=== PATIENT | male | born 1930 | race Caucasian/White ===

== ENCOUNTER → 2016-04-29 | Outpatient (CLI) | payer MEDICARE, OTHER ==
[2016-04-29 11:45] LABS: Blood Urea Nitrogen 29 mg/dL (9-20); Non-African American GFR(MDRD) >60 (>60 ml/min/1.73 sqM)
--- NOTE | 2016-04-29 15:14 | CT ---
EXAMINATION TYPE: CT ChestAbdPelvis w con DATE OF EXAM: 04/29/2016 1:07 PM INDICATION: No complaints at time of scan, malignant carcinoid tumor of other sites. COMPARISON: 04/02/2010 CT DLP: 1374.3 mGycm CONTRAST: Performed with Oral Contrast and with IV Contrast, patient injected with 100 mL of Omnipaque 300. TECHNIQUE: Axial images at 5 mm thick sections. Reconstructed images in the coronal plane. Delayed images through the kidneys. FINDINGS: CT CHEST: Portion of the thyroid visualized is normal. Vascular calcification is within the aorta. No suspicious lung nodules or focal infiltrates are present. There is a 1.0 cm lymph node in the pretracheal space. Some smaller lymphadenopathy is present. The ascending aorta diameter at the level of the main pulmonary artery is 3.3 cm. The main pulmonary artery diameter at the bifurcation is 2.[address] ABDOMEN: Liver: Normal Spleen: Normal Pancreas: Normal Adrenal glands: The adrenal glands are normal. Gallbladder: Surgically absent Kidneys: No masses are evident. No hydronephrosis is present. No cysts are present. Delayed images were obtained through the kidneys, which remain unremarkable. Aorta: Vascular calcification is within the aorta. Inferior vena cava: Normal. CT PELVIS: Mesentery appears unremarkable. Loops of bowel within the abdomen and pelvis are normal. There are loops of bowel which are incom pletely distended or lack oral contrast limiting their evaluation. Appendix: Not visualized Urinary bladder: Normal. Genitourinary structures: Prostate is slightly prominent. Osseous structures: No suspicious lytic or sclerotic lesions. Scoliosis is present. IMPRESSIONS: 1. 1.0 cm lymph node within the pretracheal space. 2. No suspicious metastatic lesions radiographically apparent.
== END | disposition home or self-care (01) ==
LOC: RADCTMAIN 11:08
PROVIDERS: ATTEND Family Medicine
DX: C7A.098 Malignant carcinoid tumors of other sites (principal)
CPT/HCPCS: 82565; 84520; 71260; 74177; 36415; Q9967

== ENCOUNTER → 2016-09-11 | Outpatient (CLI) | payer MEDICARE, OTHER ==
[2016-09-11 17:03] LABS: CH 33.1; CHCM 33.4; HCT 37.1 % (39.0-53.0); HDW 2.65; HGB 12.6 gm/dL (13.0-17.5); MCH 33.7 pg (25.0-35.0); MCHC 33.9 g/dL (31.0-37.0); MCV 99.5 fL (80.0-100.0); Macrocytosis Slight; Mean Platelet Volume 8.2; RBC 3.73 m/uL (4.30-5.90); RDW 15.3 % (11.5-15.5); WBC 11.5 k/uL (3.8-10.6)
[2016-09-11 17:10] LABS: INR 1.1 (<1.2); Prothrombin Time 10.8 sec (9.0-12.0)
[2016-09-11 17:11] LABS: ALT 32 U/L (21-72); AST 22 U/L (17-59); Alkaline Phosphatase 59 U/L (38-126); Anion Gap 11 mmol/L; Blood Urea Nitrogen 27 mg/dL (9-20); Calcium 9.5 mg/dL (8.4-10.2); Carbon Dioxide 27 mmol/L (22-30); Chloride 103 mmol/L (98-107); Glucose 99 mg/dL (74-99); Non-African American GFR(MDRD) 58 (>60 ml/min/1.73 sqM); Potassium 4.8 mmol/L (3.5-5.1); Sodium 141 mmol/L (137-145); Total Bilirubin 0.4 mg/dL (0.2-1.3); Total Protein 6.8 g/dL (6.3-8.2)
== END ==
LOC: LABWHC1 16:40
PROVIDERS: ATTEND Internal Medicine Gastroenterology
DX: K74.60 Unspecified cirrhosis of liver (principal)
CPT/HCPCS: 36415; 80053; 82105; 85027; 85610

== ENCOUNTER → 2017-03-24 | Outpatient (CLI) | payer MEDICARE, OTHER ==
[2017-03-24 13:01] LABS: HCT 39.3 % (39.0-53.0); HGB 13.4 gm/dL (13.0-17.5); MCH 34.5 pg (25.0-35.0); MCV 101.4 fL (80.0-100.0); Macrocytosis Slight; Mean Platelet Volume 7.5; Platelet Count 208 k/uL (150-450); RBC 3.88 m/uL (4.30-5.90); RDW 13.6 % (11.5-15.5); WBC 12.9 k/uL (3.8-10.6)
[2017-03-24 13:07] LABS: ALT 18 U/L (21-72); AST 19 U/L (17-59); Albumin 4.2 g/dL (3.5-5.0); Alkaline Phosphatase 55 U/L (38-126); Anion Gap 12 mmol/L; Blood Urea Nitrogen 25 mg/dL (9-20); Calcium 9.5 mg/dL (8.4-10.2); Carbon Dioxide 28 mmol/L (22-30); Chloride 102 mmol/L (98-107); Glucose 129 mg/dL (74-99); Potassium 3.9 mmol/L (3.5-5.1); Sodium 142 mmol/L (137-145); Total Bilirubin 0.4 mg/dL (0.2-1.3); Total Protein 6.8 g/dL (6.3-8.2)
[2017-03-24 13:11] LABS: INR 1.1 (<1.2); Prothrombin Time 10.3 sec (9.0-12.0)
== END | disposition home or self-care (01) ==
LOC: LABWHC1 12:26
PROVIDERS: ATTEND Internal Medicine Gastroenterology
DX: K74.60 Unspecified cirrhosis of liver (principal)
CPT/HCPCS: 36415; 80053; 82105; 85027; 85610

== ENCOUNTER → 2017-04-13 | Outpatient (CLI) | payer MEDICARE, OTHER ==
--- NOTE | 2017-04-13 08:32 | US ---
EXAMINATION TYPE: US liver DATE OF EXAM: 04/13/2017 COMPARISON: 04/29/2016 CLINICAL HISTORY: K74.60 cirrhosis of liver; taking Lipitor; gallbladder removed EXAM MEASUREMENTS: Liver Length: 12.9 cm Gallbladder Wall: surgically removed CBD: 0.2 cm Right Kidney: 9.6 x 5.6 x 6.4 cm Pancreas: hyperechoic and unremarkable Liver: Coarsened and heterogeneous. This finding limits evaluation for underlying hepatic masses alt francisco j no discrete masses are identified on today's examination; Hepatic Vein flow to IVC; Portal Vein Flow and Hepatic artery flow to liver Gallbladder: surgically absent Evidence for sonographic [place]obato's sign: No CBD: wnl Right Kidney: No hydronephrosis or masses seen IMPRESSION: 1. Coarsened and heterogenous hepatic echotexture with a cirrhotic morphology of the liver. No focal lesions are identified in today's examination. 2. Surgical absence of the gallbladder
== END | disposition home or self-care (01) ==
LOC: RADUSWWP 06:57
PROVIDERS: ATTEND Internal Medicine Gastroenterology
DX: K74.60 Unspecified cirrhosis of liver (principal); R93.2 Abnormal findings on diagnostic imaging of liver and biliary tract; Z90.49 Acquired absence of other specified parts of digestive tract
CPT/HCPCS: 76705

== ENCOUNTER → 2017-09-15 | Outpatient (CLI) | payer MEDICARE, OTHER ==
[2017-09-15 16:56] LABS: HCT 35.6 % (39.0-53.0); HGB 11.7 gm/dL (13.0-17.5); MCH 31.8 pg (25.0-35.0); MCHC 32.8 g/dL (31.0-37.0); MCV 97.2 fL (80.0-100.0); Mean Platelet Volume 7.1; Platelet Count 190 k/uL (150-450); RBC 3.67 m/uL (4.30-5.90); RDW 13.9 % (11.5-15.5); WBC 9.7 k/uL (3.8-10.6)
[2017-09-15 17:08] LABS: Albumin 3.9 g/dL (3.5-5.0); Calcium 8.7 mg/dL (8.4-10.2); Potassium 4.2 mmol/L (3.5-5.1); Total Bilirubin 0.5 mg/dL (0.2-1.3); Total Protein 6.1 g/dL (6.3-8.2)
[2017-09-15 17:13] LABS: INR 1.1 (<1.2); Prothrombin Time 10.8 sec (9.0-12.0)
== END | disposition home or self-care (01) ==
LOC: LABWHC1 15:31
PROVIDERS: ATTEND Internal Medicine Gastroenterology
DX: K74.60 Unspecified cirrhosis of liver (principal)
CPT/HCPCS: 36415; 80053; 82105; 85027; 85610

== ENCOUNTER → 2017-10-13 | Outpatient (CLI) | payer MEDICARE, OTHER | END | disposition home or self-care (01) | LOC: LABWHC1 11:54 | PROVIDERS: ATTEND Nurse Practitioner Adult Health | DX: E78.2 Mixed hyperlipidemia (principal) | CPT/HCPCS: 36415; 83704 ==

== ENCOUNTER → 2018-02-26 | Outpatient (CLI) | payer MEDICARE, OTHER ==
[2018-02-26 09:27] LABS: HCT 35.2 % (39.0-53.0); HGB 11.1 gm/dL (13.0-17.5); MCHC 31.6 g/dL (31.0-37.0); MCV 101.3 fL (80.0-100.0); Macrocytosis Slight; Mean Platelet Volume 7.1; Platelet Count 193 k/uL (150-450); RBC 3.48 m/uL (4.30-5.90); RDW 14.4 % (11.5-15.5); WBC 8.8 k/uL (3.8-10.6)
[2018-02-26 17:44] LABS: Albumin/Globulin Ratio 2.67 (1.20-2.10); Anion Gap 7.9 mmol/L (4.00-12.00); Calcium 9.2 mg/dL (8.7-10.3); Carbon Dioxide 29.1 mmol/L (21.6-31.8); Globulin 1.5 g/dL (1.6-3.3); Potassium 4.2 mmol/L (3.5-5.5); Total Bilirubin 0.3 mg/dL (0.3-1.2); Total Protein 5.5 g/dL (6.2-8.2)
[2018-02-26 17:50] LABS: T4, Free (Free Thyroxine) 1.2 ng/dL (0.80-1.80)
== END | disposition home or self-care (01) ==
LOC: LABWHC1 08:18
PROVIDERS: ATTEND Internal Medicine Cardiovascular Disease
DX: Z00.00 Encounter for general adult medical examination without abnormal findings (principal)
CPT/HCPCS: 36415; 80053; 84439; 84443; 85027

== ENCOUNTER → 2018-03-16 | Outpatient (CLI) | payer MEDICARE, OTHER ==
[2018-03-16 10:10] LABS: HCT 34.7 % (39.0-53.0); HGB 11.5 gm/dL (13.0-17.5); MCH 33.7 pg (25.0-35.0); MCHC 33.3 g/dL (31.0-37.0); MCV 101.3 fL (80.0-100.0); Macrocytosis Slight; Platelet Count 212 k/uL (150-450); RBC 3.42 m/uL (4.30-5.90); RDW 14.1 % (11.5-15.5); WBC 10.6 k/uL (3.8-10.6)
[2018-03-16 10:18] LABS: Prothrombin Time 10.2 sec (9.0-12.0)
[2018-03-16 16:33] LABS: Albumin 3.9 g/dL (3.80-4.90); Albumin/Globulin Ratio 2.17 (1.20-2.10); Anion Gap 9.4 mmol/L (4.00-12.00); Calcium 9.3 mg/dL (8.7-10.3); Carbon Dioxide 25.6 mmol/L (21.6-31.8); Globulin 1.8 g/dL (1.6-3.3); Potassium 4.6 mmol/L (3.5-5.5); Total Bilirubin 0.3 mg/dL (0.2-1.2); Total Protein 5.7 g/dL (6.2-8.2)
== END ==
LOC: LABWHC1 09:37
PROVIDERS: ATTEND Internal Medicine Gastroenterology
DX: K74.60 Unspecified cirrhosis of liver (principal)
CPT/HCPCS: 36415; 80053; 82105; 85027; 85610

== ENCOUNTER → 2018-09-07 | Outpatient (CLI) | payer MEDICARE, OTHER ==
[2018-09-07 09:38] LABS: HCT 36.6 % (39.0-53.0); HGB 11.7 gm/dL (13.0-17.5); MCH 32.8 pg (25.0-35.0); MCHC 32.1 g/dL (31.0-37.0); MCV 102.1 fL (80.0-100.0); Macrocytosis Slight; Mean Platelet Volume 7.4; Platelet Count 188 k/uL (150-450); RBC 3.58 m/uL (4.30-5.90); RDW 14.4 % (11.5-15.5); WBC 10.4 k/uL (3.8-10.6)
[2018-09-07 09:47] LABS: Albumin 4.1 g/dL (3.5-5.0); Calcium 9.4 mg/dL (8.4-10.2); Total Bilirubin 0.6 mg/dL (0.2-1.3); Total Protein 6.5 g/dL (6.3-8.2)
--- NOTE | 2018-09-07 12:34 | US ---
EXAMINATION TYPE: US liver DATE OF EXAM: 09/07/2018 COMPARISON: 04/13/2017 CLINICAL HISTORY: 87-year-old male K74.60 cirrhosis of liver. Recheck of liver. No pain. GB removed . TECHNIQUE: Multiple sonographic images of the right upper quadrant are obtained. FINDINGS: EXAM MEASUREMENTS: Liver Length: 14.5 cm CBD: 0.4 cm Right Kidney: 10.3 x 5.3 x 5.6 cm Pancreas: Normal, echogenic in appearance. Liver: Appears coarse, lobular and heterogenous. No focal lesions identified. Gallbladder: Surgically absent Evidence for sonographic Lobato's sign: neg CBD: wnl Right Kidney: No hydronephrosis. IMPRESSION: 1. Coarsened appearance to the liver parenchyma with some nodular contour suggesting underlying cirrh osis. No sonographic evidence for hepatoma. 2. Status post cholecystectomy. No biliary ductal dilatation.
== END | disposition home or self-care (01) ==
LOC: RADUSWWP 08:10
PROVIDERS: ATTEND Internal Medicine Gastroenterology
DX: K74.60 Unspecified cirrhosis of liver (principal); Z90.49 Acquired absence of other specified parts of digestive tract
CPT/HCPCS: 76705; 80053; 82105; 85027; 85610

== ENCOUNTER → 2018-11-15 | Outpatient (CLI) | payer MEDICARE, OTHER ==
[2018-11-15 15:41] LABS: African American GFR (CKD) 62.6 (60.0-200.0); Albumin 4.1 g/dL (3.80-4.90); Albumin/Globulin Ratio 2.41 (1.60-3.17); Anion Gap 12.8 mmol/L (4.00-12.00); BUN/Creat Ratio 19.17 Ratio (12.00-20.00); Calcium 9.2 mg/dL (8.7-10.3); Carbon Dioxide 26.2 mmol/L (21.6-31.8); Chol/HDL Ratio 2.85; Globulin 1.7 g/dL (1.6-3.3); Total Bilirubin 0.3 mg/dL (0.2-1.2); Total Protein 5.8 g/dL (6.2-8.2)
[2018-11-15 17:10] LABS: Hemoglobin A1C 5.9 % (4.0-6.0)
== END | disposition home or self-care (01) ==
LOC: LABWHC1 07:58
PROVIDERS: ATTEND Family Medicine
DX: I25.10 Atherosclerotic heart disease of native coronary artery without angina pectoris (principal); R73.9 Hyperglycemia, unspecified
CPT/HCPCS: 36415; 80053; 80061; 83036; 84443

== ENCOUNTER → 2019-02-14 | Outpatient (CLI) | payer MEDICARE, OTHER ==
[2019-02-15 00:27] LABS: African American GFR (CKD) 44.2 (60.0-200.0); Anion Gap 12.2 mmol/L (4.00-12.00); BUN/Creat Ratio 17.5 Ratio (12.00-20.00); Calcium 9.6 mg/dL (8.7-10.3); Carbon Dioxide 27.8 mmol/L (21.6-31.8); Non-African American GFR(CKD) 38.2 (60.0-200.0); Potassium 4.3 mmol/L (3.5-5.5)
== END | disposition home or self-care (01) ==
LOC: LABWHC1 16:03
PROVIDERS: ATTEND Nurse Practitioner Adult Health
DX: R60.0 Localized edema (principal)
CPT/HCPCS: 36415; 80048; 83880

== ENCOUNTER → 2019-08-01 | Outpatient (CLI) | payer MEDICARE, OTHER ==
[2019-08-01 11:42] LABS: HCT 37.2 % (39.0-53.0); HGB 11.7 gm/dL (13.0-17.5); MCH 32.1 pg (25.0-35.0); MCHC 31.5 g/dL (31.0-37.0); MCV 101.9 fL (80.0-100.0); Macrocytosis Slight; Mean Platelet Volume 8.2; Platelet Count 197 k/uL (150-450); RBC 3.65 m/uL (4.30-5.90); RDW 14.3 % (11.5-15.5); WBC 12.5 k/uL (3.8-10.6)
[2019-08-01 11:59] LABS: Prothrombin Time 10.4 sec (9.0-12.0)
[2019-08-01 16:55] LABS: African American GFR (CKD) 69.6 (60.0-200.0); Albumin 4.3 g/dL (3.80-4.90); Albumin/Globulin Ratio 2.05 (1.60-3.17); Anion Gap 10.7 mmol/L (4.00-12.00); BUN/Creat Ratio 20.91 Ratio (12.00-20.00); Calcium 9.3 mg/dL (8.7-10.3); Carbon Dioxide 26.3 mmol/L (21.6-31.8); Globulin 2.1 g/dL (1.6-3.3); Potassium 4.2 mmol/L (3.5-5.5); Total Bilirubin 0.5 mg/dL (0.2-1.2); Total Protein 6.4 g/dL (6.2-8.2)
== END | disposition home or self-care (01) ==
LOC: LABWHC1 10:26
PROVIDERS: ATTEND Internal Medicine Gastroenterology
DX: K74.60 Unspecified cirrhosis of liver (principal)
CPT/HCPCS: 36415; 80053; 82105; 85027; 85610

== ENCOUNTER → 2019-09-05 | Outpatient (CLI) | payer MEDICARE, OTHER ==
[2019-09-05 16:28] LABS: African American GFR (CKD) 62.6 (60.0-200.0); Albumin 4.1 g/dL (3.80-4.90); Albumin/Globulin Ratio 2.05 (1.60-3.17); Anion Gap 7.2 mmol/L (4.00-12.00); BUN/Creat Ratio 23.33 Ratio (12.00-20.00); Calcium 9.4 mg/dL (8.7-10.3); Carbon Dioxide 26.8 mmol/L (21.6-31.8); Chol/HDL Ratio 2.96; LDL Cholesterol,Calculated 69.2 mg/dL (0.0-131.0); Potassium 4.2 mmol/L (3.5-5.5); Total Bilirubin 0.4 mg/dL (0.3-1.2); Total Protein 6.1 g/dL (6.2-8.2); VLDL Calculation 20.8 mg/dL (5.00-40.00)
== END | disposition home or self-care (01) ==
LOC: LABWHC1 09:00
PROVIDERS: ATTEND Internal Medicine Interventional Cardiology
DX: E78.2 Mixed hyperlipidemia (principal)
CPT/HCPCS: 36415; 80053; 80061

== ENCOUNTER → 2019-09-19 | Outpatient (CLI) | payer MEDICARE, OTHER ==
--- NOTE | 2019-09-19 10:07 | US ---
EXAMINATION TYPE: US liver DATE OF EXAM: 09/19/2019 COMPARISON: Ultrasound [address] 2017 CLINICAL HISTORY: K74.60 Cirrhosis. EXAM MEASUREMENTS: Liver Length: 11.7 cm Gallbladder Wall: Surgically absent CBD: 0.3 cm Right Kidney: 10.3 x 6.2 x 4.8 cm Pancreas: visualized portions wnl Liver: somewhat lobular contour. Gallbladder: Surgically absent CBD: wnl Right Kidney: No hydronephrosis or masses seen Visualized pancreas is unremarkable. Visualized liver shows slight heterogeneity without new mass or ductal dilatation. Lobulated contour on 2017 CT is well seen on ultrasound. No new ascites. IMPRESSION: No new intrahepatic mass or intrahepatic ductal dilatation. No new ascites noted.
== END | disposition home or self-care (01) ==
LOC: RADUSWWP 09:31
PROVIDERS: ATTEND Internal Medicine Gastroenterology
DX: K74.60 Unspecified cirrhosis of liver (principal)
CPT/HCPCS: 76705

== ENCOUNTER → 2020-01-20 | Outpatient (CLI) | payer MEDICARE, OTHER ==
[2020-01-20 09:24] LABS: HCT 37.3 % (39.0-53.0); HGB 12.1 gm/dL (13.0-17.5); MCH 33.2 pg (25.0-35.0); MCHC 32.5 g/dL (31.0-37.0); MCV 102.1 fL (80.0-100.0); Macrocytosis Slight; Mean Platelet Volume 8.5; Platelet Count 227 k/uL (150-450); RBC 3.66 m/uL (4.30-5.90); RDW 14.3 % (11.5-15.5); WBC 11.4 k/uL (3.8-10.6)
[2020-01-20 14:31] LABS: INR 1.03 (0.90-1.11); Prothrombin Time 11.1 sec (9.9-11.9)
[2020-01-20 16:33] LABS: African American GFR (CKD) 56.5 (60.0-200.0); Albumin 4.3 g/dL (3.80-4.90); Albumin/Globulin Ratio 2.15 (1.60-3.17); Anion Gap 9.8 mmol/L (4.00-12.00); BUN/Creat Ratio 21.54 Ratio (12.00-20.00); Calcium 9.5 mg/dL (8.7-10.3); Carbon Dioxide 28.2 mmol/L (21.6-31.8); Chol/HDL Ratio 2.61; LDL Cholesterol,Calculated 68.8 mg/dL (0.0-131.0); Non-African American GFR(CKD) 48.7 (60.0-200.0); Potassium 3.9 mmol/L (3.5-5.5); Total Bilirubin 0.4 mg/dL (0.2-1.2); Total Protein 6.3 g/dL (6.2-8.2); VLDL Calculation 18.2 mg/dL (5.00-40.00)
== END | disposition home or self-care (01) ==
LOC: LABWHC1 08:49
PROVIDERS: ATTEND Nurse Practitioner
DX: E78.2 Mixed hyperlipidemia (principal); K74.60 Unspecified cirrhosis of liver
CPT/HCPCS: 36415; 80053; 80061; 82105; 83880; 85027; 85610

== ENCOUNTER → 2020-03-01 | Outpatient (CLI) | payer MEDICARE, OTHER ==
[2020-03-01 16:52] LABS: Hemoglobin A1C 6.2 % (4.0-6.0)
== END | disposition home or self-care (01) ==
LOC: LABWHC1 09:49
PROVIDERS: ATTEND Family Medicine
DX: R73.01 Impaired fasting glucose (principal)
CPT/HCPCS: 36415; 83036

== ENCOUNTER → 2020-04-10 | Outpatient (CLI) | payer MEDICARE, OTHER ==
--- NOTE | 2020-04-10 17:46 | CT ---
EXAMINATION TYPE: CT chest w con DATE OF EXAM: 04/10/2020 COMPARISON: CT chest 04/29/2016, CT thoracic spine 11/06/2009 HISTORY: rheumatoid arthritis CT DLP: 506 mGycm Automated exposure control for dose reduction was used. CONTRAST: CT scan of the chest is performed with IV Contrast, patient injected with 80 mL of Isovue 300. FINDINGS: LUNGS: The lungs are remarkable for some interstitial densities within the lungs bilaterally, interlo bular septal lines are present.. There is no pleural effusion or pneumothorax seen. The tracheobro nchial tree is patent. MEDIASTINUM: There are no greater than 1 cm hilar or mediastinal lymph nodes. There are some prevasc ular nodes which are shotty. No pericardial effusion is seen. Patient is post median sternotomy. Ell iptical focus of low-attenuation present anterior to the right ventricle measures approximately 5.5 x 1.8 x 2.5 cm and shows some thickening of the wall as well as some calcification suggestive of chron ic collection, possibly remote hematoma. Pulmonary artery is dilated. Heart is enlarged. There are co ronary artery and pericardial calcifications. AORTA: Atheromatous changes are present. No evident aneurysm. OTHER: There is a nodular contour to the liver. Marked scoliotic curvature to the spine is present, there is multilevel vertebral augmentation anomalies within the thoracic spine which are stable and c ongenital. Compression deformity at the thoracic lumbar junction is also chronic. There are changes o f gynecomastia. IMPRESSION: Interstitial lung disease. There are some areas of centrilobular emphysema. Correlate fo r pulmonary artery hypertension. Indeterminate fluid collection anterior to the heart is described an d thought likely to be chronic. Cardiomegaly. Correlate for possible cirrhosis. Additional findings madyson ayoub.
== END | disposition home or self-care (01) ==
LOC: RADCTMAIN 12:36
PROVIDERS: ATTEND Internal Medicine
DX: J84.9 Interstitial pulmonary disease, unspecified (principal); J43.2 Centrilobular emphysema; I51.7 Cardiomegaly; I28.1 Aneurysm of pulmonary artery; I25.10 Atherosclerotic heart disease of native coronary artery without angina pectoris; I70.0 Atherosclerosis of aorta; Z98.890 Other specified postprocedural states
CPT/HCPCS: 82565; 84520; 71260; 36415; Q9967

== ENCOUNTER 2020-07-08 10:55 | Emergency (ER) | payer MEDICARE, OTHER ==
[2020-07-08 11:20] VITALS: TEMP 98.1
[2020-07-08 12:00] VITALS: RESP 18
[2020-07-08] MEDS ORDERED: LIDOCAINE 1% INJ 10MG/ML (20 ML MDV) SQ ONE (12:09)
--- NOTE | 2020-07-08 12:49 | ED ---
Fall HPI - General Chief Complaint: Fall Stated Complaint: Lf Arm Laceration Time Seen by Provider: 07/08/20 11:31 Source: patient, RN notes reviewed, old records reviewed Mode of arrival: ambulatory - History of Present Illness Initial Comments: The stomach is an 89-year-old male presents emergency room today after bending over, and falling forward trying to fix his blinds. He reports he fell hitting his forehead the bridge of his nose as well as his left ribs by landing on his left arm Patient reports that he has a skin tear over his left forearm. Patient reports that he has no other complaints including headache, or abdominaljpain or back pain. He is Not on blood thinners. Denies loss of consciousness. - Related Data Home Medications Medication Instructions Recorded Confirmed Atorvastatin Calcium [Lipitor] 40 mg PO HS 06/15/13 06/19/20 Bumetanide [BUMEX] 1 mg PO DAILY 06/15/13 06/19/20 Losartan [Cozaar] 25 mg PO DAILY 06/15/13 06/19/20 Multivitamin/Iron/Folic Acid 1 each PO DAILY 06/15/13 06/19/20 [Centrum Complete Multivit Tab] Omeprazole [PriLOSEC] 20 mg PO BID 06/15/13 06/19/20 Spironolactone [Aldactone] 25 mg PO BID 06/15/13 06/19/20 Tamsulosin HCl [Flomax] 0.4 mg PO DAILY 06/15/13 06/19/20 metFORMIN HCL [Glucophage] 500 mg PO BID 06/15/13 06/19/20 predniSONE 5 mg PO DIRECTED 06/15/13 06/19/20 sulfaSALAzine [Azulfidine] 500 mg PO BID 06/15/13 06/19/20 Calcium Carb-Vit D 500Mg-5Mcg 1 tab PO DAILY 09/18/14 06/19/20 [Oscal 500+D] Orencia(Unknown Dose) 750 mg IVPB Q30D 09/18/14 06/19/20 Allergies Allergy/AdvReac Type Severity Reaction Status Date / Time No Known Allergies Allergy Verified 07/08/20 11:20 Review of Systems ROS Statement: Those systems with pertinent positive or pertinent negative responses have been documented in the HPI. ROS Other: All systems not noted in ROS Statement are negative. Past Medical History Past Medical History: Cancer, Heart Failure, Diabetes Mellitus, GERD/Reflux, Hyperlipidemia, Hypertension, Liver Disease, Osteoarthritis (OA), Prostate Disorder, Rheumatoid Arthritis (RA) Additional Past Medical History / Comment(s): Hx. rt ear basal cell cancer, dysphagia recently, & N/V, unaware of any liver problems History of Any Multi-Drug Resistant Organisms: None Reported Past Surgical History: Cholecystectomy, Heart Catheterization Additional Past Surgical History / Comment(s): surgery for Pericardial window x 2 last-july 2008. 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 Father - colon cancer General Exam - General Exam Comments Initial Comments: Pleasant alert and oriented 89 year old male, no acute distress. Limitations: no limitations General appearance: alert, in no apparent distress Head exam: Present: atraumatic, normocephalic, normal inspection, other (bruising over mid forehead) Eye exam: Present: normal appearance, PERRL, EOMI. Absent: scleral icterus, conjunctival injection, periorbital swelling ENT exam: Present: normal exam, mucous membranes moist, TM's normal bilaterally, other (abrasion over bridge of nose, no septal hematoma. ) Neck exam: Present: normal inspection. Absent: tenderness, meningismus, lymphadenopathy Respiratory exam: Present: normal lung sounds bilaterally. Absent: respiratory distress, wheezes, rales, rhonchi, stridor Cardiovascular Exam: Present: regular rate, normal rhythm, normal heart sounds. Absent: systolic murmur, diastolic murmur, rubs, gallop, clicks GI/Abdominal exam: Present: soft, normal bowel sounds. Absent: distended, tenderness, guarding, rebound, rigid Extremities exam: Present: normal inspection, full ROM, normal capillary refill, other (4cm by 4cm skin tear flap laceration over left dorsal forearm with surrounding hematoma ). Absent: tenderness, pedal edema, joint swelling, calf tenderness Back exam: Present: normal inspection Neurological exam: Present: alert, oriented X3, CN II-XII intact Psychiatric exam: Present: normal affect, normal mood Skin exam: Present: warm, dry, intact, normal color. Absent: rash Course Vital Signs 07/08/20 07/08/20 07/08/20 11:16 11:20 14:52 Temperature 98.1 F Pulse Rate 89 78 80 Respiratory 20 18 18 Rate Blood Pressure 170/66 120/89 136/72 O2 Sat by Pulse 96 97 97 Oximetry Procedures - Laceration Laceration #1 Indication: laceration, other (skin tear) Site: upper extremity (left forearm) Size (cm): 4 (4X4cm flap skin tear) Description: flap Depth: simple, single layer Anesthetic Used: lidocaine 1% Anesthesia Technique: local infiltration Amount (mls): 8 Pre-repair: wound explored, irrigated extensively Type of Sutures: nylon Size of Sutures: 5-0 Number of Sutures: 6 (6 sutures on outer edges of skin tear, with steristrips hodling the thinner skin at the center ) Technique: simple, interrupted Patient Tolerated Procedure: well, no complications Additional Comments: multipe steri-strips applied as well to the arm. Medical Decision Making - Medical Decision Making 89year old male presents after bending over and falling onto his forehead, and left arm causing skin tear. PAtietn had CT scan brain and cspine showing no signs of fracture or intracranial hemorrhage. Forearm and rib xrays show no fracture. Pt skin tear was cleaned and closed using sutures and steristrips at the thin skin in the center. Advised suture and wound care for 10 days and return for suture removal. Discussed PCP follow up. - Radiology Data Radiology results: report reviewed CXR and L rib XR- Chronic changes and cardiomegaly without new suspicious acute pulmonary process. No acute displaced left-sided rib fracture clearly seen. L Forearm XR: [place] osseous structures are deminierlized which is noted to lower radiographic sensitivity. There is no displaced fracture in left radius or ulna. Severe narrowing distal humeral articulations with radius and ulecranonis precent. lucency consistent with laceration injury aloneg radial aspect father forearm is noted. No acute fracture or dislocation evidence in cervical spine. No intracranial hemorrhage or midline shift is seen. No displaced orbital fracture. Disposition Clinical Impression: Skin tear of left forearm without complication, Rib contusion, Forehead contusion Disposition: HOME SELF-CARE Condition: Good Instructions (If sedation given, give patient instructions): Skin Tear (ED), Rib Contusion (ED) Additional Instructions: Please return to the emergency room in 10 days to have sutures removed. Please leave wound covered for the first 24-48 hours and then leave open to air after that time. Please use clean soap and water to clean the suture area to prevent scabbing over the top of your sutures. Please watch for any signs of infection which may include but not limited to increased pain, swelling, redness, fever or chills. Please return to the emergency room if any signs of infection do occur. Please return to the emergency room for any other concerns or complications. Is patient prescribed a controlled substance at d/c from ED?: No Referrals: Marimar Schreiber MD [Primary Care Provider] - 1-2 days Time of Disposition: 14:20
--- NOTE | 2020-07-08 13:18 | CT ---
EXAMINATION TYPE: CT brain cspine wo con, CT orbits wo con DATE OF EXAM: 07/08/2020 COMPARISON: NONE HISTORY: Fall, abrasion to bridge of nose, orbital pain, headache and neck pain. CT DLP: 941.1 (accession [id number]), Included in brain/cspine (accession [id number]) mGycm. Automated Ex posure Control for Dose Reduction was Utilized. TECHNIQUE: CT scan of the head and cervical spine are performed without contrast. FINDINGS: There is no acute intracranial hemorrhage or midline shift identified. Mild to moderate v entricular and sulcal prominence greatest over bilateral frontal lobes. Mild to moderate low attenua tion in the deep and periventricular white matter. The calvarium is intact. Nasal septum is deviated to right of midline. No acute fracture is evident. Zygomatic arches are inta ct. The orbital floors and desai are intact. Scleral calcification left globe. Intraconal fat is pres erved bilaterally. Suprasellar cistern is maintained. Visualized paranasal sinuses are clear. Temporo mandibular joints are maintained. Cervical spine is visualized in its entirety from C1 through mid thoracic levels and demonstrates S-s haped rotary scoliosis and marked demineralization without acute fracture or dislocation. Moderate to advanced disc space narrowing C3-C4 and C4-C5 levels. Grade 1 anterolisthesis C5 on C6.. There is os sific fusion of the T3 and T4 vertebra is present presumed posttraumatic or post congenital. Moderate disc space narrowing T1-T2 and T2-T3 levels. 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 No acute fracture or dislocation. No suspicious prevertebral soft tissue swelling. Narrowin g of the atlantodental interval. Posterior spurring effaces anterior thecal sac at C3-C4 and C4-C5 le vels. Axial images show multilevel uncovertebral facet degenerative changes contributing to multileve l bilateral neural foraminal narrowing. Moderate calcified plaque bilateral carotid bulb level is pre sent. Thyroid gland is within normal limits. Lung apices show no pneumothorax. Moderate calcified yocasta que in the visualized aortic arch. IMPRESSION: 1. There is no acute fracture or dislocation evident in the cervical spine. 2. No acute intracranial hemorrhage or midline shift is seen. 3. No acute displaced orbital fracture.
--- NOTE | 2020-07-08 13:29 | XR ---
EXAMINATION TYPE: XR forearm LT DATE OF EXAM: 07/08/2020 CLINICAL HISTORY: Fall injury with pain TECHNIQUE: Two views of the left forearm are obtained. COMPARISON: None. FINDINGS: [place] osseous structures are demineralized which is noted to lower radiographic sensitivi ty. There is no displaced fracture seen in the left radius or ulna. Severe narrowing distal humeral a rticulation with radius and olecranon is present. Lucency consistent with laceration injury along the radial aspect of the proximal forearm is noted. IMPRESSION: As above.
--- NOTE | 2020-07-08 13:36 | XR ---
EXAMINATION TYPE: XR ribs LT w pa chest xray DATE OF EXAM: 07/08/2020 CLINICAL HISTORY: Left-sided pain after fall injury. TECHNIQUE: Single frontal view of the chest is obtained. A frontal and oblique images of the left-taylor ed ribs. COMPARISON: Chest CT April 10, 2020. FINDINGS: There are chronic parenchymal changes bilaterally with right basilar density corresponding to lobulated right hemidiaphragm. There is no new suspicious focal air space opacity, pleural effusi on, or pneumothorax seen. The cardiac silhouette size remains enlarged with atherosclerotic aorta. The osseous structures remain demineralized. Cholecystectomy clips. Overlying sternal wires several which are broken are redemonstrated. Dedicated images of left-sided ribs show demineralization which is noted to lower radiographic sensit ivity for evaluation of fine anatomic detail. No acute displaced left-sided rib fractures clearly see n IMPRESSION: 1. Chronic changes and cardiomegaly without new suspicious acute pulmonary process. 2. No acute displaced left-sided rib fracture clearly seen.
[2020-07-08 14:53] VITALS: BP 136/72; PULSE 80
== END 2020-07-08 14:53 | disposition home or self-care (01) ==
LOC: EC 10:55
DX: S51.812A Laceration without foreign body of left forearm, initial encounter (principal); S20.212A Contusion of left front wall of thorax, initial encounter; S00.83XA Contusion of other part of head, initial encounter; S00.31XA Abrasion of nose, initial encounter; I11.0 Hypertensive heart disease with heart failure; I50.9 Heart failure, unspecified; E11.9 Type 2 diabetes mellitus without complications; K21.9 Gastro-esophageal reflux disease without esophagitis; E78.5 Hyperlipidemia, unspecified; M19.90 Unspecified osteoarthritis, unspecified site; M06.9 Rheumatoid arthritis, unspecified; Z87.891 Personal history of nicotine dependence; Z79.84 Long term (current) use of oral hypoglycemic drugs; W18.30XA Fall on same level, unspecified, initial encounter
CPT/HCPCS: 12002; 70450; 70480; 72125; 99284

== ENCOUNTER → 2020-07-19 | Outpatient (CLI) | payer MEDICARE, OTHER ==
[2020-07-19 20:22] LABS: HCT 35.5 % (39.6-50.0); HGB 11.5 g/dL (13.0-17.0); MCH 33.4 pg (27.0-32.0); MCHC 32.4 g/dL (32.0-37.0); MCV 103.2 fL (80.0-97.0); Mean Platelet Volume 10.8 fL (9.5-12.2); Platelet Count 234 X 10*3/uL (140-440); RBC 3.44 X 10*6/uL (4.40-5.60); RDW 13.7 % (11.5-14.5); WBC 11.44 X 10*3/uL (4.50-10.00)
[2020-07-19 20:34] LABS: INR 1.04 (0.90-1.11); Prothrombin Time 11.3 sec (9.9-11.9)
[2020-07-20 16:41] LABS: African American GFR (CKD) 40.8 (60.0-200.0); Albumin 4.3 g/dL (3.80-4.90); Albumin/Globulin Ratio 2.05 (1.60-3.17); Anion Gap 17.6 mmol/L (4.00-12.00); BUN/Creat Ratio 18.24 Ratio (12.00-20.00); Calcium 9.5 mg/dL (8.7-10.3); Carbon Dioxide 20.4 mmol/L (21.6-31.8); Globulin 2.1 g/dL (1.6-3.3); Non-African American GFR(CKD) 35.2 (60.0-200.0); Potassium 4.3 mmol/L (3.5-5.5); Total Bilirubin 0.4 mg/dL (0.3-1.2); Total Protein 6.4 g/dL (6.2-8.2)
== END | disposition home or self-care (01) ==
LOC: LABWHC1 12:41
PROVIDERS: ATTEND Internal Medicine Gastroenterology
DX: K74.60 Unspecified cirrhosis of liver (principal)
CPT/HCPCS: 36415; 80053; 82105; 85027; 85610

== ENCOUNTER → 2020-08-02 | Outpatient (CLI) | payer MEDICARE, OTHER ==
[2020-08-02 18:17] LABS: African American GFR (CKD) 56.5 (60.0-200.0); Albumin 4.4 g/dL (3.80-4.90); Anion Gap 9.1 mmol/L (4.00-12.00); Calcium 8.9 mg/dL (8.7-10.3); Carbon Dioxide 26.9 mmol/L (21.6-31.8); Chol/HDL Ratio 3.23; Globulin 2.2 g/dL (1.6-3.3); LDL Cholesterol,Calculated 68.2 mg/dL (0.0-131.0); Non-African American GFR(CKD) 48.7 (60.0-200.0); Potassium 3.9 mmol/L (3.5-5.5); Total Bilirubin 0.6 mg/dL (0.2-1.2); Total Protein 6.6 g/dL (6.2-8.2); VLDL Calculation 27.8 mg/dL (5.00-40.00)
[2020-08-02 19:52] LABS: Hemoglobin A1C 5.9 % (4.0-6.0)
== END | disposition home or self-care (01) ==
LOC: LABWHC1 09:31
PROVIDERS: ATTEND Internal Medicine Interventional Cardiology
DX: N18.9 Chronic kidney disease, unspecified (principal); E78.2 Mixed hyperlipidemia; R73.9 Hyperglycemia, unspecified
CPT/HCPCS: 36415; 80053; 80061; 83036

== ENCOUNTER → 2020-08-20 | Outpatient (CLI) | payer MEDICARE, OTHER | END | disposition home or self-care (01) | CPT/HCPCS: 76705 ==

== ENCOUNTER 2020-12-12 10:08 | Inpatient (IN) | payer MEDICARE, OTHER ==
[2020-12-12 10:23] LABS: Glucose,Whole Blood 127 mg/dL (75-99)
[2020-12-12 11:18] LABS: Basophils % (A) 1 %; Eosinophils # (A) 0.2 k/uL (0-0.7); Eosinophils % (A) 3 %; HCT 36.3 % (39.0-53.0); HGB 11.9 gm/dL (13.0-17.5); Lymphocytes # (A) 2.2 k/uL (1.0-4.8); Lymphocytes % (A) 29 %; MCHC 32.6 g/dL (31.0-37.0); Macrocytosis Slight; Mean Platelet Volume 9.8; Monocytes # (A) 0.5 k/uL (0-1.0); Monocytes % (A) 7 %; Neutrophils # (A) 4.3 k/uL (1.3-7.7); Neutrophils % (A) 58 %; Platelet Count 140 k/uL (150-450); RDW 14.3 % (11.5-15.5); WBC 7.5 k/uL (3.8-10.6)
[2020-12-12 11:32] LABS: Albumin 3.4 g/dL (3.5-5.0); Calcium 8.3 mg/dL (8.4-10.2); Magnesium 1.4 mg/dL (1.6-2.3); Potassium 3.5 mmol/L (3.5-5.1); Total Bilirubin 0.5 mg/dL (0.2-1.3)
[2020-12-12 11:58] LABS: Prothrombin Time 10.6 sec (9.0-12.0)
--- NOTE | 2020-12-12 12:06 | XR ---
EXAMINATION TYPE: XR chest 2V DATE OF EXAM: 12/12/2020 COMPARISON: 07/08/2020 INDICATION: Syncope TECHNIQUE: Frontal and lateral views of the chest are obtained. FINDINGS: The heart size is upper limits of normal. The pulmonary vasculature is somewhat prominent. There are diffuse increased lung markings. Findings are nonspecific. Early volume overload could be c onsidered. Atypical pneumonia should be considered. Sternotomy wires are present.. IMPRESSION: 1. Diffuse increased lung markings. Correlate for early volume overload or atypical pneumonia.
[2020-12-12 12:41] LABS: Appearance,Urine Clear (Clear); Bilirubin,Urine Negative (Negative); Blood,Urine Negative (Negative); Color,Urine Yellow; Glucose,Urine (UA) Negative (Negative); Granular Casts,Urine 3 /lpf (0); Hyaline Casts,Urine 63 /lpf (0-2); Ketones,Urine Negative (Negative); Leukocyte Esterase,Urine Negative (Negative); Mucus,Urine Rare /hpf; Nitrite,Urine Negative (Negative); PH, Urine 5.5 (5.0-8.0); Protein,Urine 1+ (Negative); RBC,Urine 1 /hpf (0-5); Specific Gravity,Urine 1.018 (1.001-1.035); Squamous Epithelial Cell,Urine 2 /hpf (0-4); Urobilinogen,Urine <2.0 mg/dL (<2.0); WBC,Urine 2 /hpf (0-5)
[2020-12-12] MEDS: MAGNESIUM SULFATE-D5W PMX 1 GM in DEXTROSE/WATER 1 100ML.BAG IVPB SCH ×2 (13:03→14:03)
[2020-12-12] MEDS ORDERED: BUMETANIDE 0.25 MG/ML 4 ML VIAL IVP STA (13:25)
--- NOTE | 2020-12-12 13:25 | ED ---
General Adult HPI - General Chief complaint: Syncope Stated complaint: syncope Source: patient, EMS Mode of arrival: EMS Limitations: no limitations - History of Present Illness Initial comments: Patient is an 89-year-old male who presents to the emergency department for presyncope. is at bedside and provides the history. States that the patient was at home taking a shower when he started feeling lightheaded. He exited the shower and sat down. He was pale cool and diaphoretic. Patient had an episode of nausea with vomiting. EMS states that the patient was originally altered however did come to. There is no seizure-like activity. states the patient did not completely pass out. EKG en route to the hospital was described as A. fib by paramedics for which she does not have a history of. Patient also had some back pain which shot up and down his spine prior to his episode. Patient arrives at this time and is completely asymptomatic. Patient has history of pericardial window. No history of [place]. Eyes ripping or tearing sensation. No numbness, tingling or weakness in his extremities. states that he has had some cough and congestion over the past week. No covid exposures. Patient denies any chest pain at this time. No other alleviating, precipitating or modifying factors - Related Data Home Medications Medication Instructions Recorded Confirmed Bumetanide [BUMEX] 1 mg PO DAILY 06/15/13 12/12/20 Losartan [Cozaar] 25 mg PO DAILY 06/15/13 12/12/20 Multivitamin/Iron/Folic Acid 1 tab PO DAILY 06/15/13 12/12/20 [Centrum Complete Multivit Tab] Omeprazole [PriLOSEC] 20 mg PO DAILY 06/15/13 12/12/20 Spironolactone [Aldactone] 25 mg PO DAILY 06/15/13 12/12/20 Tamsulosin HCl [Flomax] 0.4 mg PO DAILY 06/15/13 12/12/20 metFORMIN HCL [Glucophage] 500 mg PO BID 06/15/13 12/12/20 predniSONE 5 mg PO Q48H 06/15/13 12/12/20 sulfaSALAzine [Azulfidine] 500 mg PO BID 06/15/13 12/12/20 Calcium Carb-Vit D 500Mg-5Mcg 1 tab PO DAILY 09/18/14 12/12/20 [Oscal 500+D] Orencia(Unknown Dose) 750 mg IVPB Q30D 09/18/14 12/12/20 Atorvastatin [Lipitor] 20 mg PO HS 12/12/20 12/12/20 Ibuprofen [Motrin] 800 mg PO Q8H PRN 12/12/20 12/12/20 Allergies Allergy/AdvReac Type Severity Reaction Status Date / Time No Known Allergies Allergy Verified 12/12/20 11:39 Review of Systems ROS Statement: Those systems with pertinent positive or pertinent negative responses have been documented in the HPI. ROS Other: All systems not noted in ROS Statement are negative. 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 Father - colon cancer General Exam Limitations: no limitations Course Vital Signs 12/12/20 12/12/20 10:10 11:25 Temperature 97.6 F Pulse Rate 56 L 75 Respiratory 16 18 Rate Blood Pressure 113/67 O2 Sat by Pulse 96 97 Oximetry EKG Findings - EKG Comments: EKG Findings:: EKG at 1016 demonstrates an irregular rhythm with a rate of 86. VT interval 172. QRS 136. QTC of 521. 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 EKG at 1129 demonstrates a sinus rhythm with occasional PVCs and PACs. VT interval 178. QRS 126. QTC of 462. No acute ST segment elevations or depressions Medical Decision Making - Medical Decision Making Upon arrival patient is placed in the trauma bay 2. Patient is symptomatically at this time. He is hooked up to a 12-lead EKG which demonstrates an irregular rhythm. IV is established laboratory sister conducted. They are remarkable for a creatinine of 1.6 which is the patient's baseline. BNP of 1950. Magnesium is 1.4. Chest x-ray demonstrates diffuse increased lung markings. Correlate for early volume overload or atypical pneumonia. Patient is swabbed for covid at this time and it is positive. Patient was given 1 mg of Bumex. Recommended admission for cardiology consultation for which the patient did agree to. He was admitted to Dr. Paige. Patient awaiting a bed on the floor. - Lab Data Result diagrams: 12/12/20 11:00 12/12/20 11:00 Lab Results 12/12/20 12/12/20 12/12/20 Range/Units 10: 11:00 11:00 WBC 7.5 (3.8-10.6) k/uL RBC 3.60 L (4.30-5.90) m/uL Hgb 11.9 L (13.0-17.5) gm/dL Hct 36.3 L (39.0-53.0) % MCV 101.0 H (80.0-100.0) fL MCH 33.0 (25.0-35.0) pg MCHC 32.6 (31.0-37.0) g/dL RDW 14.3 (11.5-15.5) % Plt Count 140 L (150-450) k/uL MPV 9.8 Neutrophils % 58 % Lymphocytes % 29 % Monocytes % 7 % Eosinophils % 3 % Basophils % 1 % Neutrophils # 4.3 (1.3-7.7) k/uL Lymphocytes # 2.2 (1.0-4.8) k/uL Monocytes # 0.5 (0-1.0) k/uL Eosinophils # 0.2 (0-0.7) k/uL Basophils # 0.0 (0-0.2) k/uL Macrocytosis Slight PT 10.6 (9.0-12.0) sec INR 1.0 (<1.2) APTT 23.0 (22.0-30.0) sec D-Dimer 0.85 H (<0.60) mg/L FEU Sodium (137-145) mmol/L Potassium (3.5-5.1) mmol/L Chloride (98-107) mmol/L Carbon Dioxide (22-30) mmol/L Anion Gap mmol/L BUN (9-20) mg/dL Creatinine (0.66-1.25) mg/dL Est GFR (CKD-EPI)AfAm (>60 ml/min/1.73 sqM) Est GFR (CKD-EPI)NonAf (>60 ml/min/1.73 sqM) Glucose (74-99) mg/dL POC Glucose (mg/dL) 127 H (75-99) mg/dL POC Glu Livestock Inspector ID Beronica Cameron Calcium (8.4-10.2) mg/dL Magnesium (1.6-2.3) mg/dL Total Bilirubin (0.2-1.3) mg/dL AST (17-59) U/L ALT (4-49) U/L Alkaline Phosphatase (38-126) U/L Troponin I (0.000-0.034) ng/mL NT-Pro-B Natriuret Pep pg/mL Total Protein (6.3-8.2) g/dL Albumin (3.5-5.0) g/dL Urine Color Urine Appearance (Clear) Urine pH (5.0-8.0) Ur Specific [place] (1.001-1.035) Urine Protein (Negative) Urine Glucose (UA) (Negative) Urine Ketones (Negative) Urine Blood (Negative) Urine Nitrite (Negative) Urine Bilirubin (Negative) Urine Urobilinogen (<2.0) mg/dL Ur Leukocyte Esterase (Negative) Urine RBC (0-5) /hpf Urine WBC (0-5) /hpf Ur Squamous Epith Cells (0-4) /hpf Hyaline Casts (0-2) /lpf Granular Casts (0) /lpf Urine Mucus (None) /hpf Coronavirus (PCR) (Not Detectd) 12/12/20 12/12/20 12/12/20 Range/Units 11:00 11:00 11:00 WBC (3.8-10.6) k/uL RBC (4.30-5.90) m/uL Hgb (13.0-17.5) gm/dL Hct (39.0-53.0) % MCV (80.0-100.0) fL MCH (25.0-35.0) pg MCHC (31.0-37.0) g/dL RDW (11.5-15.5) % Plt Count (150-450) k/uL MPV Neutrophils % % Lymphocytes % % Monocytes % % Eosinophils % % Basophils % % Neutrophils # (1.3-7.7) k/uL Lymphocytes # (1.0-4.8) k/uL Monocytes # (0-1.0) k/uL Eosinophils # (0-0.7) k/uL Basophils # (0-0.2) k/uL Macrocytosis PT (9.0-12.0) sec INR (<1.2) APTT (22.0-30.0) sec D-Dimer (<0.60) mg/L FEU Sodium 137 (137-145) mmol/L Potassium 3.5 (3.5-5.1) mmol/L Chloride 101 (98-107) mmol/L Carbon Dioxide 25 (22-30) mmol/L Anion Gap 11 mmol/L BUN 31 H (9-20) mg/dL Creatinine 1.67 H (0.66-1.25) mg/dL Est GFR (CKD-EPI)AfAm 41 (>60 ml/min/1.73 sqM) Est GFR (CKD-EPI)NonAf 36 (>60 ml/min/1.73 sqM) Glucose 121 H (74-99) mg/dL POC Glucose (mg/dL) (75-99) mg/dL POC Glu Livestock Inspector ID Calcium 8.3 L (8.4-10.2) mg/dL Magnesium 1.4 L (1.6-2.3) mg/dL Total Bilirubin 0.5 (0.2-1.3) mg/dL AST 33 (17-59) U/L ALT 13 (4-49) U/L Alkaline Phosphatase 46 (38-126) U/L Troponin I 0.032 (0.000-0.034) ng/mL NT-Pro-B Natriuret Pep 1950 pg/mL Total Protein 6.0 L (6.3-8.2) g/dL Albumin 3.4 L (3.5-5.0) g/dL Urine Color Urine Appearance (Clear) Urine pH (5.0-8.0) Ur Specific [place] (1.001-1.035) Urine Protein (Negative) Urine Glucose (UA) (Negative) Urine Ketones (Negative) Urine Blood (Negative) Urine Nitrite (Negative) Urine Bilirubin (Negative) Urine Urobilinogen (<2.0) mg/dL Ur Leukocyte Esterase (Negative) Urine RBC (0-5) /hpf Urine WBC (0-5) /hpf Ur Squamous Epith Cells (0-4) /hpf Hyaline Casts (0-2) /lpf Granular Casts (0) /lpf Urine Mucus (None) /hpf Coronavirus (PCR) (Not Detectd) 12/12/20 12/12/20 Range/Units 12:30 13:00 WBC (3.8-10.6) k/uL RBC (4.30-5.90) m/uL Hgb (13.0-17.5) gm/dL Hct (39.0-53.0) % MCV (80.0-100.0) fL MCH (25.0-35.0) pg MCHC (31.0-37.0) g/dL RDW (11.5-15.5) % Plt Count (150-450) k/uL MPV Neutrophils % % Lymphocytes % % Monocytes % % Eosinophils % % Basophils % % Neutrophils # (1.3-7.7) k/uL Lymphocytes # (1.0-4.8) k/uL Monocytes # (0-1.0) k/uL Eosinophils # (0-0.7) k/uL Basophils # (0-0.2) k/uL Macrocytosis PT (9.0-12.0) sec INR (<1.2) APTT (22.0-30.0) sec D-Dimer (<0.60) mg/L FEU Sodium (137-145) mmol/L Potassium (3.5-5.1) mmol/L Chloride (98-107) mmol/L Carbon Dioxide (22-30) mmol/L Anion Gap mmol/L BUN (9-20) mg/dL Creatinine (0.66-1.25) mg/dL Est GFR (CKD-EPI)AfAm (>60 ml/min/1.73 sqM) Est GFR (CKD-EPI)NonAf (>60 ml/min/1.73 sqM) Glucose (74-99) mg/dL POC Glucose (mg/dL) (75-99) mg/dL POC Glu Livestock Inspector ID Calcium (8.4-10.2) mg/dL Magnesium (1.6-2.3) mg/dL Total Bilirubin (0.2-1.3) mg/dL AST (17-59) U/L ALT (4-49) U/L Alkaline Phosphatase (38-126) U/L Troponin I (0.000-0.034) ng/mL NT-Pro-B Natriuret Pep pg/mL Total Protein (6.3-8.2) g/dL Albumin (3.5-5.0) g/dL Urine Color Yellow Urine Appearance Clear (Clear) Urine pH 5.5 (5.0-8.0) Ur Specific [place] 1.018 (1.001-1.035) Urine Protein 1+ H (Negative) Urine Glucose (UA) Negative (Negative) Urine Ketones Negative (Negative) Urine Blood Negative (Negative) Urine Nitrite Negative (Negative) Urine Bilirubin Negative (Negative) Urine Urobilinogen <2.0 (<2.0) mg/dL Ur Leukocyte Esterase Negative (Negative) Urine RBC 1 (0-5) /hpf Urine WBC 2 (0-5) /hpf Ur Squamous Epith Cells 2 (0-4) /hpf Hyaline Casts 63 H (0-2) /lpf Granular Casts 3 (0) /lpf Urine Mucus Rare H (None) /hpf Coronavirus (PCR) Detected A (Not Detectd) Disposition Clinical Impression: Syncope, Hypomagnesemia, CHF exacerbation Disposition: ADMITTED IP TO THIS [facility] Condition: Stable Is patient prescribed a controlled substance at d/c from ED?: No Decision to Admit Reason: Admit from EC Decision Date: 12/12/20 Decision Time: 13:25
[2020-12-12] MEDS ORDERED: NALOXONE 0.4 MG/ML 1 ML VIAL IV PRN (13:26)
[2020-12-12] MEDS: predniSONE 5 MG TAB PO SCH (17:53)
[2020-12-12] MEDS: ATORVASTATIN 20 MG TAB PO SCH (20:27)
[2020-12-12] MEDS: sulfaSALAzine 500 MG TAB PO SCH (22:52)
[2020-12-12] MEDS: ACETAMINOPHEN TAB 325 MG TAB PO PRN (23:00)
--- NOTE | 2020-12-12 23:17 | P.HPIM ---
History of Present Illness H&P Date: 12/12/20 Chief Complaint: Near Syncope Patient is a 89-year-old male with a known history of CHF, hypertension, hyperlipidemia, GERD, history of right ear basal cell cancers previously removed, rheumatoid arthritis and prior history of cardiac catheterization smoking presents to ER due to lightheadedness and presyncopal episode. Patient is unable to provide any history at this time. Patient's is able to provide history. Apparently patient came out of shower due to complaints of sudden onset of back pain and felt lightheaded and sat on the chair. Patient felt very diaphoretic and pale and staring but did not lose consciousness as per his . No episodes of nausea vomiting. No abnormal shaking movements. Otherwise patient did not have any recent illnesses. No fever no chills. No cough or sputum production. EMS was called and patient was noted to have heart rate ranging from 5200 and was regular as per paramedics. Patient is currently resting in the bed comfortably. Denies any complaints of focal weakness. No numbness or tingling. No complaints of back pain at this time. No complaints of chest pain or shortness of breath. Patient does have recent cough and congestion without sputum production. Vital sign exam on admission blood pressure 113/67 pulse is 75 respiration 18 and pulse ox 97% on room air. EKG showed sinus rhythm with occasional PVCs. Chest x-ray showed diffuse increased lung markings. Correlate for early volume overload atypical pneumonia. Laboratory data showed WBC 7.5 hemoglobin 9.9 MCV 101.0 and platelets 140 BUN 31 and creatinine 1.67, magnesium 1.4 proBNP 1950 Troponin 0 0.032, 0.026 and 0.025 Urinalysis showed hyaline casts. Coronavirus PCR detected. 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 Father - colon cancer Medications and Allergies Home Medications Medication Instructions Recorded Confirmed Type Bumetanide [BUMEX] 1 mg PO DAILY 06/15/13 12/12/20 History Losartan [Cozaar] 25 mg PO DAILY 06/15/13 12/12/20 History Multivitamin/Iron/Folic Acid 1 tab PO DAILY 06/15/13 12/12/20 History [Centrum Complete Multivit Tab] Omeprazole [PriLOSEC] 20 mg PO DAILY 06/15/13 12/12/20 History Spironolactone [Aldactone] 25 mg PO DAILY 06/15/13 12/12/20 History Tamsulosin HCl [Flomax] 0.4 mg PO DAILY 06/15/13 12/12/20 History metFORMIN HCL [Glucophage] 500 mg PO BID 06/15/13 12/12/20 History predniSONE 5 mg PO Q48H 06/15/13 12/12/20 History sulfaSALAzine [Azulfidine] 500 mg PO BID 06/15/13 12/12/20 History Calcium Carb-Vit D 500Mg-5Mcg 1 tab PO DAILY 09/18/14 12/12/20 History [Oscal 500+D] Orencia(Unknown Dose) 750 mg IVPB Q30D 09/18/14 12/12/20 History Atorvastatin [Lipitor] 20 mg PO HS 12/12/20 12/12/20 History Ibuprofen [Motrin] 800 mg PO Q8H PRN 12/12/20 12/12/20 History Allergies Allergy/AdvReac Type Severity Reaction Status Date / Time No Known Allergies Allergy Verified 12/12/20 11:39 Physical Exam Vitals: Vital Signs Temp Pulse Resp BP Pulse Ox 12/12/20 20:26 91 18 118/71 94 L 12/12/20 18:33 101 H 16 122/70 92 L 12/12/20 16:10 99 18 129/81 95 12/12/20 11:25 75 18 113/67 97 12/12/20 10:10 97.6 F 56 L 16 96 Intake and Output 12/12/20 12/12/20 12/12/20 06:59 14:59 22:59 Other: Weight 78.471 kg PHYSICAL EXAMINATION: Patient is lying in the bed comfortably, no acute distress, awake alert and oriented.. HEENT: Normocephalic. Neck is supple. Pupils reactive. Nostrils clear. Oral cavity is moist. Neck reveals no JVD, carotid bruits, or thyromegaly. CHEST EXAMINATION: Trachea is central. Symmetrical expansion. Bilateral coarse breath sounds. No wheezing or rhonchi. Nonlabored.. CARDIAC: Normal S1, S2 with no gallops. + systolic murmur ABDOMEN: Soft. Bowel sounds normal. No organomegaly. No abdominal bruits. Extremities: reveal no edema. No clubbing or cyanosis Neurologically awake, alert, oriented x2 with well-coordinated movements. No focal deficits noted Skin: No rash or skin lesions. Psychiatric: Cooperative. Musculoskeletal: No joint swelling or deformity. Results CBC & Chem 7: 12/12/20 11:00 12/12/20 11:00 Labs: Abnormal Lab Results - Last 24 Hours (Table) 12/12/20 12/12/20 12/12/20 Range/Units 10: 11:00 11:00 RBC 3.60 L (4.30-5.90) m/uL Hgb 11.9 L (13.0-17.5) gm/dL Hct 36.3 L (39.0-53.0) % MCV 101.0 H (80.0-100.0) fL Plt Count 140 L (150-450) k/uL D-Dimer 0.85 H (<0.60) mg/L FEU BUN (9-20) mg/dL Creatinine (0.66-1.25) mg/dL Glucose (74-99) mg/dL POC Glucose (mg/dL) 127 H (75-99) mg/dL Calcium (8.4-10.2) mg/dL Magnesium (1.6-2.3) mg/dL Total Protein (6.3-8.2) g/dL Albumin (3.5-5.0) g/dL Urine Protein (Negative) Hyaline Casts (0-2) /lpf Urine Mucus (None) /hpf Coronavirus (PCR) (Not Detectd) 12/12/20 12/12/20 12/12/20 Range/Units 11:00 12:30 13:00 RBC (4.30-5.90) m/uL Hgb (13.0-17.5) gm/dL Hct (39.0-53.0) % MCV (80.0-100.0) fL Plt Count (150-450) k/uL D-Dimer (<0.60) mg/L FEU BUN 31 H (9-20) mg/dL Creatinine 1.67 H (0.66-1.25) mg/dL Glucose 121 H (74-99) mg/dL POC Glucose (mg/dL) (75-99) mg/dL Calcium 8.3 L (8.4-10.2) mg/dL Magnesium 1.4 L (1.6-2.3) mg/dL Total Protein 6.0 L (6.3-8.2) g/dL Albumin 3.4 L (3.5-5.0) g/dL Urine Protein 1+ H (Negative) Hyaline Casts 63 H (0-2) /lpf Urine Mucus Rare H (None) /hpf Coronavirus (PCR) Detected A (Not Detectd) Thrombosis Risk Factor Assmnt - DVT/VTE Prophylaxis DVT/VTE Prophylaxis: Pharmacologic Prophylaxis ordered Assessment and Plan Assessment: Acute COVID-19 pneumonia. Patient has been having symptoms for the past 1 week with cough and congestion. Acute presyncopal episode Mild acute CHF. Ejection fraction not known Acute kidney injury likely prerenal Hypomagnesemia 1.4 replaced. 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 BPH Osteoarthritis GERD History of right ear basal cell carcinoma removal Previous history of smoking DVT prophylaxis. lovenoc sq Plan: Patient will be continued Continued on telemetry monitoring. Start back on Bumex dose and Aldactone. Cardiology was consulted due to presyncopal episode and acute CHF. Patient is currently at 94 to 96% saturation on room air. Oxygen supplementation as needed. Patient will be started ascorbic acid, zinc sulfate and vitamin D3 and anticoagulated with Lovenox. Pulmonary will be consulted. Patient is on prednisone 5 mg and sulfasalazine at home. Continue with statins and other home medications. Follow-up closely. Prognosis is guarded at this time.. Time with Patient: Greater than 30
[2020-12-13] MEDS: ACETAMINOPHEN TAB 325 MG TAB PO PRN ×2 (06:49→17:32)
[2020-12-13] MEDS ORDERED: LOSARTAN 25 MG TAB PO SCH (09:00)
[2020-12-13] MEDS ORDERED: PANTOPRAZOLE 40 MG TABLET PO SCH (09:00)
[2020-12-13] MEDS: CALCIUM CARB-VIT D 500 MG-5 MCG TAB PO SCH (09:24)
[2020-12-13] MEDS: ZINC SULFATE 220 MG CAP PO SCH (09:24)
[2020-12-13] MEDS: TAMSULOSIN 0.4 MG CAP.ER.24H PO SCH (09:24)
[2020-12-13] MEDS: MULTIVITAMINS, THERA 1 EACH TAB PO SCH (09:24)
[2020-12-13] MEDS: ENOXAPARIN 40 MG/0.4 ML SYRINGE SQ SCH (09:24)
[2020-12-13] MEDS: SPIRONOLACTONE 25 MG TAB PO SCH (09:24)
[2020-12-13] MEDS: ASCORBIC ACID 500 MG TAB PO SCH (09:24)
[2020-12-13 10:06] LABS: Basophils # (A) 0.04 X 10*3/uL (0.00-0.10); Basophils % (A) 0.5 %; Eosinophils % (A) 1.2 %; HCT 35.7 % (39.6-50.0); HGB 11.4 g/dL (13.0-17.0); Lymphocytes # (A) 2.06 X 10*3/uL (0.90-5.00); Lymphocytes % (A) 24.5 %; MCH 31.6 pg (27.0-32.0); MCHC 31.9 g/dL (32.0-37.0); MCV 98.9 fL (80.0-97.0); Mean Platelet Volume 11.1 fL (9.5-12.2); Monocytes # (A) 0.62 X 10*3/uL (0.20-1.00); Monocytes % (A) 7.4 %; Neutrophils # (A) 5.51 X 10*3/uL (1.80-7.70); Neutrophils % (A) 65.3 %; Platelet Count 151 X 10*3/uL (140-440); RBC 3.61 X 10*6/uL (4.40-5.60); RDW 14.5 % (11.5-14.5); WBC 8.42 X 10*3/uL (4.50-10.00)
[2020-12-13] MEDS: sulfaSALAzine 500 MG TAB PO SCH ×2 (10:28→22:00)
[2020-12-13] MEDS: BUMETANIDE 1 MG TAB PO SCH (10:28)
--- NOTE | 2020-12-13 10:41 | ECHOF ---
Referral Reason:LV function MEASUREMENTS -------- HEIGHT: 172.7 cm WEIGHT: 78.5 kg BP: RVIDd: 2.4 cm (< 3.3) IVSd: 0.8 cm (0.6 - 1.1) LVIDd: 4.1 cm (3.9 - 5.3) LVPWd: 1.1 cm (0.6 - 1.1) IVSs: 1.7 cm LVIDs: 2.5 cm LVPWs: 1.5 cm IVSd: 0.9 cm (0.6 - 1.1) LVIDd: 5.1 cm (3.9 - 5.3) LVPWd: 1.1 cm (0.6 - 1.1) IVSs: 1.5 cm LVIDs: 3.0 cm LVPWs: 2.2 cm EDV(Teich): 126 ml ESV(Teich): 34 ml EF(Teich): 73 % %FS: 43 % SV(Teich): 92 ml Ao Diam: 3.5 cm (2.0 - 3.7) AV Cusp: 2.3 cm (1.5 - 2.6) LA Diam: 3.8 cm (2.7 - 3.8) MV EXCURSION: 12.842 mm (> 18.000) MV EF SLOPE: 48 mm/s (70 - 150) EPSS: 0.9 cm MV E Ryan: 0.78 m/s MV DecT: 200 ms MV A Ryan: 0.70 m/s MV E/A Ratio: 1.10 RAP: 15.00 mmHg RVSP: 41.94 mmHg FINDINGS -------- This was a technically difficult study with suboptimal views. The left ventricular size is normal. Left ventricular wall thickness is normal. Overall left vent ricular systolic function is low-normal with, an EF between 50 - 55 %. There is paradoxical/dysyner gic septal motion consistent with post-operative status. The right ventricle is normal in size. The left atrial size is normal. The right atrial size is normal. Lumason used Aortic valve is trileaflet and is mildly thickened. The mitral valve is normal. The mitral valve leaflets are mildly thickened. Mild mitral regurgita tion is present. The tricuspid valve appears structurally normal. Mild tricuspid regurgitation present. There is m ild pulmonary hypertension. The right ventricular systolic pressure, as measured by Doppler, is 41. 94mmHg. There is no pulmonic regurgitation present. The aortic root size is normal. The inferior vena cava is mildly dilated. There is no pericardial effusion. CONCLUSIONS -------- 1. The left ventricular size is normal. 2. Left ventricular wall thickness is normal. 3. Overall left ventricular systolic function is low-normal with, an EF between 50 - 55 %. 4. Aortic valve is trileaflet and is mildly thickened. 5. The mitral valve leaflets are mildly thickened. 6. Mild mitral regurgitation is present. 7. Mild tricuspid regurgitation present. 8. There is mild pulmonary hypertension. 9. The right ventricular systolic pressure, as measured by Doppler, is 41.94mmHg. 10. The inferior vena cava is mildly dilated. 11. There is no pericardial effusion. EVENT DESIGNER: Miranda Kerr RDCS
--- NOTE | 2020-12-13 10:48 | P.CRDCN ---
History of Present Illness Consult date: 12/13/20 History of present illness: CHIEF COMPLAINT: Dizziness HISTORY OF PRESENT ILLNESS: This is a 89-year-old male with a past medical history significant for pericarditis, pericardial window 2, rheumatoid arthritis, diabetes, hypertension, hyperlipidemia, and peripheral vascular disease. Patient follows in the office with Dr. Mackey. We have been asked to see the patient in consultation for syncope. The patient was brought to the hospital after experiencing an episode of dizziness after he took a shower at home. The patient did not lose consciousness. The patient came to the hospital for further evaluation and was found to be positive for COVID-19. Case discussed with the patient's nurse who states the patient denies any chest pain or pressure. He denies having shortness of breath. He does report feeling nauseated. Telemetry reviewed revealing sinus mechanism with PACs and PVCs. DIAGNOSTICS: EKG reveals sinus mechanism with PVCs and PACs Chest xray diffuse increased lung markings. Correlate for early volume overload or atypical pneumonia. Laboratory data: WBC 8.42. Hemoglobin 11.4. Platelet count 151. D-dimer 0.54. Troponin 0.026. 0.025. Sodium 137. Potassium 3.5. BUN 31. Creatinine 1.67. Magnesium 1.4. ProBNP 1950. 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 Signing provider agrees with the documented findings, assessment, and plan of care. 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 Father - colon cancer Medications and Allergies Home Medications Medication Instructions Recorded Confirmed Type Bumetanide [BUMEX] 1 mg PO DAILY 06/15/13 12/12/20 History Losartan [Cozaar] 25 mg PO DAILY 06/15/13 12/12/20 History Multivitamin/Iron/Folic Acid 1 tab PO DAILY 06/15/13 12/12/20 History [Centrum Complete Multivit Tab] Omeprazole [PriLOSEC] 20 mg PO DAILY 06/15/13 12/12/20 History Spironolactone [Aldactone] 25 mg PO DAILY 06/15/13 12/12/20 History Tamsulosin HCl [Flomax] 0.4 mg PO DAILY 06/15/13 12/12/20 History metFORMIN HCL [Glucophage] 500 mg PO BID 06/15/13 12/12/20 History predniSONE 5 mg PO Q48H 06/15/13 12/12/20 History sulfaSALAzine [Azulfidine] 500 mg PO BID 06/15/13 12/12/20 History Calcium Carb-Vit D 500Mg-5Mcg 1 tab PO DAILY 09/18/14 12/12/20 History [Oscal 500+D] Orencia(Unknown Dose) 750 mg IVPB Q30D 09/18/14 12/12/20 History Atorvastatin [Lipitor] 20 mg PO HS 12/12/20 12/12/20 History Ibuprofen [Motrin] 800 mg PO Q8H PRN 12/12/20 12/12/20 History Allergies Allergy/AdvReac Type Severity Reaction Status Date / Time No Known Allergies Allergy Verified 12/12/20 11:39 Physical Exam Vitals: Vital Signs Temp Pulse Pulse Resp BP BP Pulse Ox 12/13/20 07:47 98.0 F 12/13/20 07:39 76 16 12/13/20 05:25 99.8 F H 76 17 135/77 98 12/13/20 02:31 99.4 F 69 17 108/51 96 12/12/20 23:50 98.6 F 97 18 157/73 95 12/12/20 22:53 101.1 F H 82 17 93 L 12/12/20 20:26 91 18 118/71 94 L 12/12/20 18:33 101 H 16 122/70 92 L 12/12/20 16:10 99 18 129/81 95 12/12/20 11:25 75 18 113/67 97 Intake and Output 12/12/20 12/13/20 12/13/20 22:59 06:59 14:59 Intake Total 100 Balance 100 Intake: Oral 100 Other: Weight 78.471 kg Results 12/13/20 05:59 12/12/20 11:00 Cardiac Enzymes 12/12/20 12/12/20 12/12/20 Range/Units 11:00 11:00 15:18 AST 33 (17-59) U/L Troponin I 0.032 0.026 (0.000-0.034) ng/mL 12/12/20 Range/Units 18:01 AST (17-59) U/L Troponin I 0.025 (0.000-0.034) ng/mL Coagulation 12/12/20 Range/Units 11:00 PT 10.6 (9.0-12.0) sec APTT 23.0 (22.0-30.0) sec CBC 12/12/20 12/13/20 Range/Units 11:00 05:59 WBC 7.5 8.42 (3.8-10.6) k/uL RBC 3.60 L 3.61 L (4.30-5.90) m/uL Hgb 11.9 L 11.4 L (13.0-17.5) gm/dL Hct 36.3 L 35.7 L (39.0-53.0) % Plt Count 140 L 151 (150-450) k/uL Comprehensive Metabolic Panel 12/12/20 Range/Units 11:00 Sodium 137 (137-145) mmol/L Potassium 3.5 (3.5-5.1) mmol/L Chloride 101 (98-107) mmol/L Carbon Dioxide 25 (22-30) mmol/L BUN 31 H (9-20) mg/dL Creatinine 1.67 H (0.66-1.25) mg/dL Glucose 121 H (74-99) mg/dL Calcium 8.3 L (8.4-10.2) mg/dL AST 33 (17-59) U/L ALT 13 (4-49) U/L Alkaline Phosphatase 46 (38-126) U/L Total Protein 6.0 L (6.3-8.2) g/dL Albumin 3.4 L (3.5-5.0) g/dL Current Medications Generic Name Dose Route Start Last Admin Trade Name Freq PRN Reason Stop Dose Admin Acetaminophen 650 mg 12/12/20 23:00 12/13/20 06:49 Acetaminophen Tab 325 Mg Tab PO 650 mg Q6HR PRN Administration Fever and/ or Pain Ascorbic Acid 500 mg 12/13/20 09:00 12/13/20 09:24 Ascorbic Acid 500 Mg Tab PO 500 mg DAILY FAINA Administration Atorvastatin Calcium 20 mg 12/12/20 21:00 12/12/20 20:27 Atorvastatin 20 Mg Tab PO 20 mg HS FAINA Administration Bumetanide 1 mg 12/13/20 09:00 Bumetanide 1 Mg Tab PO DAILY FAINA Calcium Carbonate 1 each 12/13/20 09:00 12/13/20 09:24 Calcium Carb-Vit D 500 Mg-5 Mcg Tab PO 1 each DAILY FAINA Administration Enoxaparin Sodium 40 mg 12/13/20 09:00 12/13/20 09:24 Enoxaparin 40 Mg/0.4 Ml Syringe SQ 40 mg DAILY FAINA Administration Losartan Potassium 25 mg 12/13/20 09:00 12/13/20 09:24 Losartan 25 Mg Tab PO 25 mg DAILY FAINA Administration Multivitamins 1 each 12/13/20 09:00 12/13/20 09:24 Multivitamins, Thera 1 Each Tab PO 1 each DAILY FAINA Administration Naloxone HCl 0.2 mg 12/12/20 13:26 Naloxone 0.4 Mg/Ml 1 Ml Vial IV Q2M PRN Opioid Reversal Pantoprazole Sodium 40 mg 12/13/20 09:00 12/13/20 09:24 Pantoprazole 40 Mg Tablet PO 40 mg DAILY FAINA Administration Prednisone 5 mg 12/12/20 16:15 12/12/20 17:53 Prednisone 5 Mg Tab PO 5 mg Q48H FAINA Administration Spironolactone 25 mg 12/13/20 09:00 12/13/20 09:24 Spironolactone 25 Mg Tab PO 25 mg DAILY FAINA Administration Sulfasalazine 500 mg 12/12/20 21:00 12/12/20 22:52 Sulfasalazine 500 Mg Tab PO 03/21/21 21:01 Not Given BID FAINA Tamsulosin HCl 0.4 mg 12/13/20 09:00 12/13/20 09:24 Tamsulosin 0.4 Mg Cap.Er.24h PO 0.4 mg DAILY FAINA Administration Zinc Sulfate 220 mg 12/13/20 09:00 12/13/20 09:24 Zinc Sulfate 220 Mg Cap PO 220 mg DAILY FAINA Administration Intake and Output 12/12/20 12/13/20 12/13/20 22:59 06:59 14:59 Intake Total 100 Balance 100 Intake: Oral 100 Other: Weight 78.471 kg 12/13/20 05:59 12/12/20 11:00
--- NOTE | 2020-12-13 14:58 | P.CNPUL ---
History of Present Illness Consult date: 12/13/20 Requesting physician: Tran Paige Reason for consult: other Chief complaint: Presyncopal episode, confusion, lightheadedness History of present illness: This is a 89-year-old male patient with past medical history of diabetes mellitus type 2, nonspecific interstitial pneumonitis/pulmonary fibrosis secondary to rheumatoid arthritis, hypertension, hyperlipidemia, peripheral vascular disease, previous history of pericarditis status post pericardial window 2. Patient was brought into the hospital after experiencing an episode of dizziness after she took a shower at home. He did not lose consciousness. No complaints of shortness of breath, no chest pain or pressure, he reported feeling nauseous following the event, his chest x-ray showed diffuse increased lung markings, EKG showed sinus mechanism with PVCs and PACs. Patient was tested for COVID-19 in the ER and was found to be positive. His urinalysis was negative for any definite sign of infection. His white blood cell count was 7.5, hemoglobin was 11.9, d-dimer was 0.85, electrolytes were within normal limits, B1 is 31 creatinine was 1.67, troponins were negative at 0.032, and 0.026, proBNP was 1950. LFTs were within normal limits. Patient is currently on 2 L of oxygen and pulse ox of 96%, his had some low grade fevers while in the hospital with a temp of 99.8F. His third of her troponins remained negative at 0.026 and 0.025. Today's d-dimer is within normal limits at 0.54. Patient is breathing comfortably, denies any significant pulmonary complaints. He did complete his COVID-19 vaccination. Is on maintenance dose prednisone 5 mg every other day for his history of interstitial lung disease related to rheumatoid arthritis. 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 Pulmonary perspective he is asymptomatic, he is resting comfortably in bed, cardiology is being consulted for patient's episode of presyncope and dizziness at home. Please refer to the consultation note. Review of Systems All systems: negative Constitutional: Denies chills, Denies fever Eyes: denies blurred vision, denies pain Ears, nose, mouth and throat: Denies headache, Denies sore throat Cardiovascular: Denies chest pain, Denies shortness of breath Respiratory: Denies cough Gastrointestinal: Denies abdominal pain, Denies diarrhea, Denies nausea, Denies vomiting Musculoskeletal: Denies myalgias Integumentary: Denies pruritus, Denies rash Neurological: Reports syncope, Denies numbness, Denies weakness Psychiatric: Denies anxiety, Denies depression Endocrine: Denies fatigue, Denies weight change 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 Father - colon cancer Medications and Allergies Home Medications Medication Instructions Recorded Confirmed Type Bumetanide [BUMEX] 1 mg PO DAILY 06/15/13 12/12/20 History Losartan [Cozaar] 25 mg PO DAILY 06/15/13 12/12/20 History Multivitamin/Iron/Folic Acid 1 tab PO DAILY 06/15/13 12/12/20 History [Centrum Complete Multivit Tab] Omeprazole [PriLOSEC] 20 mg PO DAILY 06/15/13 12/12/20 History Spironolactone [Aldactone] 25 mg PO DAILY 06/15/13 12/12/20 History Tamsulosin HCl [Flomax] 0.4 mg PO DAILY 06/15/13 12/12/20 History metFORMIN HCL [Glucophage] 500 mg PO BID 06/15/13 12/12/20 History predniSONE 5 mg PO Q48H 06/15/13 12/12/20 History sulfaSALAzine [Azulfidine] 500 mg PO BID 06/15/13 12/12/20 History Calcium Carb-Vit D 500Mg-5Mcg 1 tab PO DAILY 09/18/14 12/12/20 History [Oscal 500+D] Orencia(Unknown Dose) 750 mg IVPB Q30D 09/18/14 12/12/20 History Atorvastatin [Lipitor] 20 mg PO HS 12/12/20 12/12/20 History Ibuprofen [Motrin] 800 mg PO Q8H PRN 12/12/20 12/12/20 History Allergies Allergy/AdvReac Type Severity Reaction Status Date / Time No Known Allergies Allergy Verified 12/12/20 11:39 Physical Exam Vitals: Vital Signs Temp Pulse Pulse Resp BP BP BP 12/13/20 10:24 98.3 F 70 18 116/62 12/13/20 07:47 98.0 F 12/13/20 07:39 76 16 12/13/20 05:25 99.8 F H 76 17 135/77 12/13/20 02:31 99.4 F 69 17 108/51 12/12/20 23:50 98.6 F 97 18 157/73 12/12/20 22:53 101.1 F H 82 17 12/12/20 20:26 91 18 118/71 12/12/20 18:33 101 H 16 122/70 12/12/20 16:10 99 18 129/81 BP BP Pulse Ox 12/13/20 10:24 125/71 122/62 96 12/13/20 07:47 12/13/20 07:39 12/13/20 05:25 98 12/13/20 02:31 96 12/12/20 23:50 95 12/12/20 22:53 93 L 12/12/20 20:26 94 L 12/12/20 18:33 92 L 12/12/20 16:10 95 Intake and Output 12/12/20 12/13/20 12/13/20 22:59 06:59 14:59 Intake Total 100 Balance 100 Intake: Oral 100 Other: Weight 78.471 kg GENERAL EXAM: Alert, very pleasant, 81 white male, on room air, comfortable in no apparent distress. HEAD: Normocephalic/atraumatic. EYES: Normal reaction of pupils, equal size. Conjunctiva pink, sclera white. NOSE: Clear with pink turbinates. THROAT: No erythema or exudates. NECK: No masses, no JVD, no thyroid enlargement, no adenopathy. CHEST: No chest wall deformity. Symmetrical expansion. LUNGS: Equal air entry with no crackles, wheeze, rhonchi or dullness. CVS: Regular rate and rhythm, normal S1 and S2, no gallops, no murmurs, no rubs ABDOMEN: Soft, nontender. No hepatosplenomegaly, normal bowel sounds, no guarding or rigidity. EXTREMITIES: No clubbing, no edema, no cyanosis, 2+ pulses and upper and lower extremities. MUSCULOSKELETAL: Muscle strength and tone normal. SPINE: No scoliosis or deformity SKIN: No rashes CENTRAL NERVOUS SYSTEM: Alert and oriented -3. No focal deficits, tone is normal in all 4 extremities. PSYCHIATRIC: Alert and oriented -3. Appropriate affect. Intact judgment and insight. Results - Laboratory Findings CBC and BMP: 12/13/20 05:59 12/12/20 11:00 PT/INR, D-dimer PT 10.6 sec (9.0-12.0) 12/12/20 11:00 INR 1.0 (<1.2) 12/12/20 11:00 D-Dimer 0.54 mg/L FEU (<0.60) 12/13/20 05:59 Abnormal lab findings: Abnormal Labs 12/12/20 12/12/20 12/12/20 10: 11:00 11:00 RBC 3.60 L Hgb 11.9 L Hct 36.3 L MCV 101.0 H MCHC Plt Count 140 L Immature Gran # D-Dimer 0.85 H BUN Creatinine Glucose POC Glucose (mg/dL) 127 H Calcium Magnesium Total Protein Albumin Urine Protein Hyaline Casts Urine Mucus Coronavirus (PCR) 12/12/20 12/12/20 12/12/20 11:00 12:30 13:00 RBC Hgb Hct MCV MCHC Plt Count Immature Gran # D-Dimer BUN 31 H Creatinine 1.67 H Glucose 121 H POC Glucose (mg/dL) Calcium 8.3 L Magnesium 1.4 L Total Protein 6.0 L Albumin 3.4 L Urine Protein 1+ H Hyaline Casts 63 H Urine Mucus Rare H Coronavirus (PCR) Detected A 12/13/20 05:59 RBC 3.61 L Hgb 11.4 L Hct 35.7 L MCV 98.9 H MCHC 31.9 L Plt Count Immature Gran # 0.09 H D-Dimer BUN Creatinine Glucose POC Glucose (mg/dL) Calcium Magnesium Total Protein Albumin Urine Protein Hyaline Casts Urine Mucus Coronavirus (PCR) - Diagnostic Findings Chest x-ray: report reviewed, image reviewed Assessment and Plan Plan: Assessment: #1. Acute COVID-19 infection, without pulmonary symptoms, at the time of evaluation patient is on room air. Not a candidate for Remdesivir, or Decadron. Tested positive for COVID-19 in the emergency department on 12/12/2020, chest x-ray shows possibility of atypical pneumonia or early interstitial edema, patient does have underlying chronic changes related to his underlying history of interstitial lung disease secondary to rheumatoid arthritis #2. Presyncopal episode at home, without loss of consciousness #3. Diabetes mellitus type 2 #4. Hypertension #5. Hyperlipidemia #6. GERD/reflux #7. Arthritis #8. Rheumatoid arthritis #9. History of pericarditis status post pericardial window 2 #10. History of non-specific interstitial pneumonitis/pulmonary fibrosis secondary to rheumatoid arthritis, patient is on maintenance dose prednisone 5 mg daily #11. Possible chronic hypoxic respiratory failure related to the above, not oxygen dependent up until recently #12. History of liver cirrhosis #13. Peripheral vascular disease Plan: Patient denies any pulmonary complaints Currently on room air Currently not a candidate for Decadron or Remdesivir Continue supportive treatment Patient has completed his COVID-19 vaccination Patient continues further evaluation for his episode of presyncope Cardiology is following Continue to follow his clinical course Continue with his maintenance dose prednisone Prophylactic Lovenox We'll follow his inflammatory markers and monitor for worsening dyspnea or hypoxia I performed a history & physical examination of the patient and discussed their management with my nurse practitioner, Gayle Coreas. I reviewed the nurse practitioner's note and agree with the documented findings and plan of care. Lung sounds are positive for diminished breath sounds throughout the lung tran. The findings and the impression was discussed with the patient. I attest to the documentation by the nurse practitioner. Time with Patient: Greater than 30
--- NOTE | 2020-12-13 15:01 | P.PN ---
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 Patient is unable to provide any history at this time. Patient's is able to provide history. Apparently patient came out of shower due to complaints of sudden onset of back pain and felt lightheaded and sat on the chair. Patient felt very diaphoretic and pale and staring but did not lose consciousness as per his . No episodes of nausea vomiting. No abnormal shaking movements. Otherwise patient did not have any recent illnesses. No fever no chills. No cough or sputum production. EMS was called and patient was noted to have heart rate ranging from 5200 and was regular as per paramedics. Patient is currently resting in the bed comfortably. Denies any complaints of focal weakness. No numbness or tingling. No complaints of back pain at this time. No complaints of chest pain or shortness of breath. Patient does have recent cough and congestion without sputum production. Vital sign exam on admission blood pressure 113/67 pulse is 75 respiration 18 and pulse ox 97% on room air. EKG showed sinus rhythm with occasional PVCs. Chest x-ray showed diffuse increased lung markings. Correlate for early volume overload atypical pneumonia. Laboratory data showed WBC 7.5 hemoglobin 9.9 MCV 101.0 and platelets 140 BUN 31 and creatinine 1.67, magnesium 1.4 proBNP 1950 Troponin 0 0.032, 0.026 and 0.025 Urinalysis showed hyaline casts. Coronavirus PCR detected. 12/13/2020 Patient is seen and evaluated in follow-up this morning. Patient currently on 2 L of oxygen nasal cannula although oxygen saturations have been 97-98%. Per nursing staff, an episode of low oxygen saturation was reported the patient was placed on 2 L via nasal cannula. Patient denies any worsening shortness of breath and discussed with nursing staff about weaning FiO2 as tolerated as patient does not wear oxygen in the outpatient setting. Cardiology following the patient and 2-D echo was ordered and pulmonary also consulted and pending at this time. Labs: D-dimer 0.54, white blood count 8.42, hemoglobin 11.4, platelets are 151. Other morning labs are currently pending. Review of systems: Constitutional: No reports of fatigue, fever, or chills Cardiovascular: No reports of chest pain or palpitations Respiratory: No reports of shortness of breath or cough GI: No reports of nausea, vomiting, or diarrhea : No reports of dysuria or retention Neurovascular: No reports of weakness or numbness All medications have been reviewed Active Medications Acetaminophen (Acetaminophen Tab 325 Mg Tab) 650 mg PO Q6HR PRN PRN Reason: Fever and/ or Pain Last Admin: 12/13/20 06:49 Dose: 650 mg Documented by: Ascorbic Acid (Ascorbic Acid 500 Mg Tab) 500 mg PO DAILY [facility] Last Admin: 12/13/20 09:24 Dose: 500 mg Documented by: Atorvastatin Calcium (Atorvastatin 20 Mg Tab) 20 mg PO HS [facility] Last Admin: 12/12/20 20:27 Dose: 20 mg Documented by: Bumetanide (Bumetanide 1 Mg Tab) 1 mg PO DAILY [facility] Last Admin: 12/13/20 10:28 Dose: 1 mg Documented by: Calcium Carbonate (Calcium Carb-Vit D 500 Mg-5 Mcg Tab) 1 each PO DAILY [facility] Last Admin: 12/13/20 09:24 Dose: 1 each Documented by: Enoxaparin Sodium (Enoxaparin 40 Mg/0.4 Ml Syringe) 40 mg SQ DAILY [facility] Last Admin: 12/13/20 09:24 Dose: 40 mg Documented by: Multivitamins (Multivitamins, Thera 1 Each Tab) 1 each PO DAILY [facility] Last Admin: 12/13/20 09:24 Dose: 1 each Documented by: Naloxone HCl (Naloxone 0.4 Mg/Ml 1 Ml Vial) 0.2 mg IV Q2M PRN PRN Reason: Opioid Reversal Pantoprazole Sodium (Pantoprazole 40 Mg Tablet) 40 mg PO DAILY [facility] Last Admin: 12/13/20 09:24 Dose: 40 mg Documented by: Prednisone (Prednisone 5 Mg Tab) 5 mg PO Q48H [facility] Last Admin: 12/12/20 17:53 Dose: 5 mg Documented by: Spironolactone (Spironolactone 25 Mg Tab) 25 mg PO DAILY [facility] Last Admin: 12/13/20 09:24 Dose: 25 mg Documented by: Sulfasalazine (Sulfasalazine 500 Mg Tab) 500 mg PO BID [facility] Stop: 03/21/21 21:01 Last Admin: 12/13/20 10:28 Dose: 500 mg Documented by: Tamsulosin HCl (Tamsulosin 0.4 Mg Cap.Er.24h) 0.4 mg PO DAILY [facility] Last Admin: 12/13/20 09:24 Dose: 0.4 mg Documented by: Zinc Sulfate (Zinc Sulfate 220 Mg Cap) 220 mg PO DAILY [facility] Last Admin: 12/13/20 09:24 Dose: 220 mg Documented by: Physical exam: Patient is lying in the bed comfortably, no acute distress, awake alert and oriented.. HEENT: Normocephalic. Neck is supple. Pupils reactive. Nostrils clear. Oral cavity is moist. Neck reveals no JVD, carotid bruits, or thyromegaly. CHEST EXAMINATION: Trachea is central. Symmetrical expansion. Bilateral coarse breath sounds. No wheezing or rhonchi. Nonlabored.. CARDIAC: Normal S1, S2 with no gallops. + systolic murmur ABDOMEN: Soft. Bowel sounds normal. No organomegaly. No abdominal bruits. Extremities: reveal no edema. No clubbing or cyanosis Neurologically awake, alert, oriented x2 with well-coordinated movements. No focal deficits noted Skin: No rash or skin lesions. Psychiatric: Cooperative. Musculoskeletal: No joint swelling or deformity. Assessment: Acute COVID-19 pneumonia. Patient has been having symptoms for the past 1 week with cough and congestion. Acute presyncopal episode Mild acute CHF. Ejection fraction not known Acute kidney injury likely prerenal Hypomagnesemia 1.4 replaced. 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 BPH Osteoarthritis GERD History of right ear basal cell carcinoma removal Previous history of smoking DVT prophylaxis. lovenox sq Full code Plan: Patient will be continued Continued on telemetry monitoring. Cardiology following and 2-D echo was ordered and pending at this time. Pulmonary also consulted for COVID-19 inpatient will continue on his prednisone along with vitamin and zinc supplements and Lovenox injections. Patient denies any worsening shortness of breath and per nursing staff had an episode of low oxygen saturation reading and was placed on 2 L. Oxygen saturations are 97-98% on 2 L. Discussed with nursing staff about weaning FiO2 as tolerated. Repeat labs in the morning and follow-up on today's labs as they are currently pending. Further recommendations to follow pending the clinical course of the patient. Prognosis is guarded. Objective - Vital Signs Vital signs: Vital Signs Temp 98.0 F 12/13/20 07:47 Pulse 76 12/13/20 07:39 Resp 16 12/13/20 07:39 BP 135/77 12/13/20 05:25 Pulse Ox 98 12/13/20 05:25 Intake & Output 12/12/20 12/13/20 12/13/20 18:59 06:59 18:59 Intake Total 100 Balance 100 Weight 78.471 kg 78.471 kg Intake: Oral 100 - Labs CBC & Chem 7: 12/13/20 05:59 12/12/20 11:00 Labs: Abnormal Lab Results - Last 24 Hours (Table) 12/12/20 12/12/20 12/12/20 Range/Units 10: 11:00 11:00 RBC 3.60 L (4.30-5.90) m/uL Hgb 11.9 L (13.0-17.5) gm/dL Hct 36.3 L (39.0-53.0) % MCV 101.0 H (80.0-100.0) fL Plt Count 140 L (150-450) k/uL D-Dimer 0.85 H (<0.60) mg/L FEU BUN (9-20) mg/dL Creatinine (0.66-1.25) mg/dL Glucose (74-99) mg/dL POC Glucose (mg/dL) 127 H (75-99) mg/dL Calcium (8.4-10.2) mg/dL Magnesium (1.6-2.3) mg/dL Total Protein (6.3-8.2) g/dL Albumin (3.5-5.0) g/dL Urine Protein (Negative) Hyaline Casts (0-2) /lpf Urine Mucus (None) /hpf Coronavirus (PCR) (Not Detectd) 12/12/20 12/12/20 12/12/20 Range/Units 11:00 12:30 13:00 RBC (4.30-5.90) m/uL Hgb (13.0-17.5) gm/dL Hct (39.0-53.0) % MCV (80.0-100.0) fL Plt Count (150-450) k/uL D-Dimer (<0.60) mg/L FEU BUN 31 H (9-20) mg/dL Creatinine 1.67 H (0.66-1.25) mg/dL Glucose 121 H (74-99) mg/dL POC Glucose (mg/dL) (75-99) mg/dL Calcium 8.3 L (8.4-10.2) mg/dL Magnesium 1.4 L (1.6-2.3) mg/dL Total Protein 6.0 L (6.3-8.2) g/dL Albumin 3.4 L (3.5-5.0) g/dL Urine Protein 1+ H (Negative) Hyaline Casts 63 H (0-2) /lpf Urine Mucus Rare H (None) /hpf Coronavirus (PCR) Detected A (Not Detectd)
[2020-12-13] MEDS ORDERED: ONDANSETRON 4 MG/2 ML VIAL IVP PRN (15:24)
[2020-12-13 16:44] LABS: C Reactive Protein 1.2 mg/dL (0.00-0.80); Magnesium 1.8 mg/dL (1.5-2.4)
[2020-12-13 20:04] LABS: BUN/Creat Ratio 17.43 Ratio (12.00-20.00); Globulin 2.1 g/dL (1.6-3.3)
[2020-12-13 20:05] LABS: African American GFR (CKD) 47.9 (60.0-200.0); Albumin 3.7 g/dL (3.8-4.9); Albumin/Globulin Ratio 1.71 (1.60-3.17); Anion Gap 22.8 mmol/L (4.00-12.00); Blood Urea Nitrogen 25.8 mg/dL (9.0-27.0); Calcium 8.4 mg/dL (8.7-10.3); Carbon Dioxide 17.7 mmol/L (21.6-31.8); Non-African American GFR(CKD) 41.4 (60.0-200.0); Potassium 3.5 mmol/L (3.5-5.5); Total Bilirubin 0.4 mg/dL (0.30-1.20); Total Protein 5.8 g/dL (6.2-8.2)
[2020-12-13 21:33] LABS: Glucose,Whole Blood 158 mg/dL (75-99)
[2020-12-13] MEDS: PANTOPRAZOLE 40 MG/10 ML VIAL IVP SCH (21:59)
[2020-12-13] MEDS: ATORVASTATIN 20 MG TAB PO SCH (21:59)
[2020-12-13] MEDS: INSULIN ASPART (NovoLOG) 100 UNIT/ML VIAL SQ SCH (22:24)
[2020-12-14 06:55] LABS: Glucose,Whole Blood 112 mg/dL (75-99)
[2020-12-14] MEDS: ACETAMINOPHEN TAB 325 MG TAB PO PRN (07:29)
[2020-12-14] MEDS: INSULIN ASPART (NovoLOG) 100 UNIT/ML VIAL SQ SCH ×4 (08:17→20:58)
[2020-12-14 09:10] LABS: Basophils % (A) 1 %; Eosinophils # (A) 0.1 k/uL (0-0.7); Eosinophils % (A) 1 %; HCT 36.5 % (39.0-53.0); HGB 12.1 gm/dL (13.0-17.5); Lymphocytes # (A) 2.5 k/uL (1.0-4.8); Lymphocytes % (A) 32 %; MCH 33.2 pg (25.0-35.0); MCV 100.7 fL (80.0-100.0); Macrocytosis Slight; Mean Platelet Volume 9.6; Monocytes # (A) 0.3 k/uL (0-1.0); Monocytes % (A) 4 %; Neutrophils # (A) 4.8 k/uL (1.3-7.7); Neutrophils % (A) 60 %; Platelet Count 178 k/uL (150-450); RBC 3.63 m/uL (4.30-5.90); RDW 14.1 % (11.5-15.5)
--- NOTE | 2020-12-14 09:15 | P.PN ---
Subjective Progress Note Date: 12/14/20 CHIEF COMPLAINT: Dizziness HISTORY OF PRESENT ILLNESS: This is a 89-year-old male with a past medical history significant for pericarditis, pericardial window 2, rheumatoid arthritis, diabetes, hypertension, hyperlipidemia, and peripheral vascular disease. Patient follows in the office with Dr. Mackey. We have been asked to see the patient in consultation for syncope. The patient was brought to the hospital after experiencing an episode of dizziness after he took a shower at home. The patient did not lose consciousness. The patient came to the hospital for further evaluation and was found to be positive for COVID-19. Case discussed with the patient's nurse who states the patient denies any chest pain or pressure. He denies having shortness of breath. He does report feeling nauseated. Telemetry reviewed revealing sinus mechanism with PACs and PVCs. DIAGNOSTICS: EKG reveals sinus mechanism with PVCs and PACs Chest xray diffuse increased lung markings. Correlate for early volume overload or atypical pneumonia. Laboratory data: WBC 8.42. Hemoglobin 11.4. Platelet count 151. D-dimer 0.54. Troponin 0.026. 0.025. Sodium 137. Potassium 3.5. BUN 31. Creatinine 1.67. Magnesium 1.4. ProBNP 1950. Current home cardiac medications include Aldactone 25 mg daily, losartan 25 mg daily, Bumex 1 mg daily, and Lipitor 20 mg daily 12/14/2020 Echocardiogram completed yesterday reveals ejection fraction 50-55%, mild mitral regurgitation, mild tricuspid regurgitation, and mild pulmonary hypertension. Telemetry reviewed revealing sinus mechanism with PACs and PVCs. Patient appears to be having small runs of possible atrial tachycardia. No atrial fibrillation visualized. Orthostatics are negative. TSH is pending. PHYSICAL EXAM: Thorough physical exam not completed secondary to limited evaluation/examination due to Covid19 ASSESSMENT: Dizziness, presyncope Covid 19 Acute kidney injury History of pericarditis History of pericardial window 2 Rheumatoid arthritis Hypertension Hyperlipidemia Diabetes mellitus Peripheral vascular disease PLAN: Monitor kidney function. Losartan on hold due to LORI on admission Begin metoprolol 25mg BID Continue telemetry monitoring Check electrolytes No further inpatient recommendations from a cardiology standpoint. We will sign off. Please reconsult if needed. Nurse practitioner note has been reviewed by physician. Signing provider agrees with the documented findings, assessment, and plan of care. Objective - Vital Signs Vital signs: Vital Signs Temp 101.4 F H 12/14/20 05:58 Pulse 83 12/14/20 05:58 Resp 18 12/13/20 18:00 BP 106/62 12/14/20 05:58 Pulse Ox 89 L 12/14/20 05:58 Intake & Output 12/13/20 12/14/20 12/14/20 18:59 06:59 18:59 Output Total 100 Balance -100 Output: Urine 100 Other: Voiding Method Urinal # Voids 6 1 # Bowel Movements 0 - Labs CBC & Chem 7: 12/14/20 06:20 12/14/20 06:20 Labs: Abnormal Lab Results - Last 24 Hours (Table) 12/13/20 12/13/20 12/13/20 Range/Units 05:59 05:59 21:31 RBC 3.61 L (4.40-5.60) X 10*6/uL Hgb 11.4 L (13.0-17.0) g/dL Hct 35.7 L (39.6-50.0) % MCV 98.9 H (80.0-97.0) fL MCHC 31.9 L (32.0-37.0) g/dL Immature Gran # 0.09 H (0.00-0.04) X 10*3/uL Carbon Dioxide 17.7 L (21.6-31.8) mmol/L Anion Gap 22.80 H (4.00-12.00) mmol/L Est GFR (CKD-EPI)AfAm 47.9 L (60.0-200.0) Est GFR (CKD-EPI)NonAf 41.4 L (60.0-200.0) Glucose 115 H (70-110) mg/dL POC Glucose (mg/dL) 158 H (75-99) mg/dL Calcium 8.4 L (8.7-10.3) mg/dL Lactate Dehydrogenase 323 H (120-246) U/L C-Reactive Protein 1.20 H (0.00-0.80) mg/dL Total Protein 5.8 L (6.2-8.2) g/dL Albumin 3.7 L (3.8-4.9) g/dL 12/14/20 Range/Units 06:50 RBC (4.40-5.60) X 10*6/uL Hgb (13.0-17.0) g/dL Hct (39.6-50.0) % MCV (80.0-97.0) fL MCHC (32.0-37.0) g/dL Immature Gran # (0.00-0.04) X 10*3/uL Carbon Dioxide (21.6-31.8) mmol/L Anion Gap (4.00-12.00) mmol/L Est GFR (CKD-EPI)AfAm (60.0-200.0) Est GFR (CKD-EPI)NonAf (60.0-200.0) Glucose (70-110) mg/dL POC Glucose (mg/dL) 112 H (75-99) mg/dL Calcium (8.7-10.3) mg/dL Lactate Dehydrogenase (120-246) U/L C-Reactive Protein (0.00-0.80) mg/dL Total Protein (6.2-8.2) g/dL Albumin (3.8-4.9) g/dL
[2020-12-14] MEDS: MULTIVITAMINS, THERA 1 EACH TAB PO SCH (09:16)
[2020-12-14] MEDS: SPIRONOLACTONE 25 MG TAB PO SCH (09:16)
[2020-12-14] MEDS: ENOXAPARIN 40 MG/0.4 ML SYRINGE SQ SCH (09:16)
[2020-12-14] MEDS: ASCORBIC ACID 500 MG TAB PO SCH (09:16)
[2020-12-14] MEDS: sulfaSALAzine 500 MG TAB PO SCH ×2 (09:16→21:13)
[2020-12-14] MEDS: ZINC SULFATE 220 MG CAP PO SCH (09:16)
[2020-12-14] MEDS: BUMETANIDE 1 MG TAB PO SCH (09:16)
[2020-12-14] MEDS: TAMSULOSIN 0.4 MG CAP.ER.24H PO SCH (09:16)
[2020-12-14] MEDS: CALCIUM CARB-VIT D 500 MG-5 MCG TAB PO SCH (09:16)
[2020-12-14 09:18] LABS: African American GFR (CKD) 43 (>60 ml/min/1.73 sqM); Anion Gap 9 mmol/L; Blood Urea Nitrogen 31 mg/dL (9-20); Calcium 8.4 mg/dL (8.4-10.2); Carbon Dioxide 29 mmol/L (22-30); Chloride 95 mmol/L (98-107); Glucose 111 mg/dL (74-99); Magnesium 1.5 mg/dL (1.6-2.3); Non-African American GFR(CKD) 37 (>60 ml/min/1.73 sqM); Potassium 3.5 mmol/L (3.5-5.1); Sodium 133 mmol/L (137-145)
[2020-12-14] MEDS: METOPROLOL TARTRATE 25 MG TAB PO SCH ×2 (09:32→21:13)
[2020-12-14] MEDS: PANTOPRAZOLE 40 MG/10 ML VIAL IVP SCH (09:32)
[2020-12-14] MEDS: MAGNESIUM SULFATE-D5W PMX 1 GM in DEXTROSE/WATER 1 100ML.BAG IVPB SCH ×2 (10:13→12:33)
[2020-12-14 11:33] LABS: Glucose,Whole Blood 120 mg/dL (75-99)
--- NOTE | 2020-12-14 12:42 | P.PN ---
Subjective Progress Note Date: 12/14/20 Principal diagnosis: COVID-19 infection, near syncope This is a 89-year-old male patient with past medical history of diabetes mellitus type 2, nonspecific interstitial pneumonitis/pulmonary fibrosis secondary to rheumatoid arthritis, hypertension, hyperlipidemia, peripheral va scular disease, previous history of pericarditis status post pericardial window 2. Patient was brought into the hospital after experiencing an episode of dizziness after she took a shower at home. He did not lose consciousness. No complaints of shortness of breath, no chest pain or pressure, he reported feeling nauseous following the event, his chest x-ray showed diffuse increased lung markings, EKG showed sinus mechanism with PVCs and PACs. Patient was tested for COVID-19 in the ER and was found to be positive. His urinalysis was negative for any definite sign of infection. His white blood cell count was 7.5, hemoglobin was 11.9, d-dimer was 0.85, electrolytes were within normal limi ts, B1 is 31 creatinine was 1.67, troponins were negative at 0.032, and 0.026, proBNP was 1950. LFTs were within normal limits. Patient is currently on 2 L of oxygen and pulse ox of 96%, his had some low grade fevers while in the hospital with a temp of 99.8F. His third of her troponins remained negative at 0.026 and 0.025. Today's d-dimer is within normal limits at 0.54. Patient is breathing comfortably, denies any significant pulmonary complaints. He did complete his COVID-19 vaccination. Is on maintenance dose prednisone 5 mg every other day for his history of interstitial lung disease related to rheumatoid arthritis. 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 Pulmonary perspective he is asymptomatic, he is resting comfortably in bed, cardiology is being consulted for patient's episode of presyncope and dizziness at home. Please refer to the consultation note. The patient is seen today 12/14/2020 in follow-up on the regular medical floor. Discussed the resting comfortably in bed. Awake and alert in no acute distress. No Benavides syncope. No worsening shortness of breath, cough or congestion. He is maintaining O2 saturations at 90% on 2 L/m per nasal cannula. He did have a temp early this morning of 101.4. Currently afebrile. White count 8.0. Hemoglobin 12.1. Lymphocytes 2.5. D-dimer 0.59. Sodium 133. Potassium 3.5. Creatinine 1.6. Glucose 111. He is continued on Lovenox, prednisone vitamin supplements. Objective - Vital Signs Vital signs: Vital Signs Temp 98.5 F 12/14/20 09:06 Pulse 81 12/14/20 09:06 Resp 17 12/14/20 09:06 BP 118/62 12/14/20 09:06 Pulse Ox 90 L 12/14/20 09:06 Intake & Output 12/13/20 12/14/20 12/14/20 18:59 06:59 18:59 Output Total 100 Balance -100 Output: Urine 100 Other: Voiding Method Urinal # Voids 6 1 # Bowel Movements 0 - Exam GENERAL EXAM: Alert, very pleasant, 81 -year-old male patient, on 2 L nasal ca nnula, comfortable in no apparent distress. HEAD: Normocephalic/atraumatic. EYES: Normal reaction of pupils, equal size. Conjunctiva pink, sclera white. NOSE: Clear with pink turbinates. THROAT: No erythema or exudates. NECK: No masses, no JVD, no thyroid enlargement, no adenopathy. CHEST: No chest wall deformity. Symmetrical expansion. LUNGS: Equal air entry with faint crackles in bilateral bases. CVS: Regular rate and rhythm, normal S1 and S2, no gallops, no murmurs, no rubs ABDOMEN: Soft, nontender. No hepatosplenomegaly, normal bowel sounds, no guarding or rigidity. EXTREMITIES: No clubbing, no edema, no cyanosis, 2+ pulses and upper and lower extremities. MUSCULOSKELETAL: Muscle strength and tone normal. SPINE: No scoliosis or deformity SKIN: No rashes CENTRAL NERVOUS SYSTEM: No focal deficits, tone is normal in all 4 extremities. PSYCHIATRIC: Alert and oriented -3. Appropriate affect. Intact judgment and insight. - Labs CBC & Chem 7: 12/14/20 06:20 12/14/20 06:20 Labs: Abnormal Lab Results - Last 24 Hours (Table) 12/13/20 12/13/20 12/14/20 Range/Units 05:59 21:31 06:20 RBC 3.63 L (4.30-5.90) m/uL Hgb 12.1 L (13.0-17.5) gm/dL Hct 36.5 L (39.0-53.0) % MCV 100.7 H (80.0-100.0) fL Sodium (137-145) mmol/L Chloride (98-107) mmol/L Carbon Dioxide 17.7 L (21.6-31.8) mmol/L Anion Gap 22.80 H (4.00-12.00) mmol/L BUN (9-20) mg/dL Creatinine (0.66-1.25) mg/dL Est GFR (CKD-EPI)AfAm 47.9 L (60.0-200.0) Est GFR (CKD-EPI)NonAf 41.4 L (60.0-200.0) Glucose 115 H (70-110) mg/dL POC Glucose (mg/dL) 158 H (75-99) mg/dL Calcium 8.4 L (8.7-10.3) mg/dL Magnesium (1.6-2.3) mg/dL Lactate Dehydrogenase 323 H (120-246) U/L C-Reactive Protein 1.20 H (0.00-0.80) mg/dL Total Protein 5.8 L (6.2-8.2) g/dL Albumin 3.7 L (3.8-4.9) g/dL 12/14/20 12/14/20 12/14/20 Range/Units 06:20 06:50 11:30 RBC (4.30-5.90) m/uL Hgb (13.0-17.5) gm/dL Hct (39.0-53.0) % MCV (80.0-100.0) fL Sodium 133 L (137-145) mmol/L Chloride 95 L (98-107) mmol/L Carbon Dioxide (21.6-31.8) mmol/L Anion Gap (4.00-12.00) mmol/L BUN 31 H (9-20) mg/dL Creatinine 1.63 H (0.66-1.25) mg/dL Est GFR (CKD-EPI)AfAm (60.0-200.0) Est GFR (CKD-EPI)NonAf (60.0-200.0) Glucose 111 H (70-110) mg/dL POC Glucose (mg/dL) 112 H 120 H (75-99) mg/dL Calcium (8.7-10.3) mg/dL Magnesium 1.5 L (1.6-2.3) mg/dL Lactate Dehydrogenase (120-246) U/L C-Reactive Protein (0.00-0.80) mg/dL Total Protein (6.2-8.2) g/dL Albumin (3.8-4.9) g/dL Assessment and Plan Assessment: 1 Acute COVID-19 infection, without pulmonary symptoms. He is vaccinated. Not a candidate for Remdesivir, or Decadron. Tested positive for COVID-19 in the emergency department on 12/12/2020, chest x-ray shows possibility of atypical pneumonia or early interstitial edema, patient does have underlying chronic changes related to his underlying history of interstitial lung disease secondary to rheumatoid arthritis 2 Presyncopal episode at home, without loss of consciousness 3 Diabetes mellitus type 2 4 Hypertension 5 Hyperlipidemia 6 GERD/reflux 7 Arthritis 8 Rheumatoid arthritis 9 History of pericarditis status post pericardial window 2 10 History of non-specific interstitial pneumonitis/pulmonary fibrosis secondary to rheumatoid arthritis, patient is on maintenance dose prednisone 5 mg daily 11 Possible chronic hypoxic respiratory failure related to the above, not oxygen dependent up until recently 12 History of liver cirrhosis 13 Peripheral vascular disease Plan: The patient was seen and evaluated by Dr. Vaz Continue the current treatment plan Titrate the FiO2 as tolerated Possible home in the a.m. We will continue to follow I, the cosigning physician, performed a history & physical examination of the patient. Lungs sounds with crackles in the bilateral bases. Maintaining good O2 saturations in the 90s on 2 L/m per nasal cannula. I discussed the assessment and plan of care with my nurse practitioner, Tea Goddard. I attest to the above note as dictated by her.
--- NOTE | 2020-12-14 15:01 | P.PN ---
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 Patient is unable to provide any history at this time. Patient's is able to provide history. Apparently patient came out of shower due to complaints of sudden onset of back pain and felt lightheaded and sat on the chair. Patient felt very diaphoretic and pale and staring but did not lose consciousness as per his . No episodes of nausea vomiting. No abnormal shaking movements. Otherwise patient did not have any recent illnesses. No fever no chills. No cough or sputum production. EMS was called and patient was noted to have heart rate ranging from 5200 and was regular as per paramedics. Patient is currently resting in the bed comfortably. Denies any complaints of focal weakness. No numbness or tingling. No complaints of back pain at this time. No complaints of chest pain or shortness of breath. Patient does have recent cough and congestion without sputum production. Vital sign exam on admission blood pressure 113/67 pulse is 75 respiration 18 and pulse ox 97% on room air. EKG showed sinus rhythm with occasional PVCs. Chest x-ray showed diffuse increased lung markings. Correlate for early volume overload atypical pneumonia. Laboratory data showed WBC 7.5 hemoglobin 9.9 MCV 101.0 and platelets 140 BUN 31 and creatinine 1.67, magnesium 1.4 proBNP 1950 Troponin 0 0.032, 0.026 and 0.025 Urinalysis showed hyaline casts. Coronavirus PCR detected. 12/13/2020 Patient is seen and evaluated in follow-up this morning. Patient currently on 2 L of oxygen nasal cannula although oxygen saturations have been 97-98%. Per nursing staff, an episode of low oxygen saturation was reported the patient was placed on 2 L via nasal cannula. Patient denies any worsening shortness of breath and discussed with nursing staff about weaning FiO2 as tolerated as patient does not wear oxygen in the outpatient setting. Cardiology following the patient and 2-D echo was ordered and pulmonary also consulted and pending at this time. 12/14/2020 Patient is seen in follow-up this morning currently sitting up in the chair continues to be on 2 L of oxygen although reports no shortness of breath. Patient's oxygen saturations 90s and will continue on 2 L. patient did have a brief low-grade intermittent temp of 101.4 this morning and responded well to Tylenol and is currently afebrile. cardiology following recommend continuing current medication management and will follow as needed. 2-D echo showed an EF of 50-55% with some mild pulmonary hypertension, mild mitral and tricuspid re gurgitation present. patient states he feels fine and is asking if he can go home. magnesium 1.5 and will replace per protocol and repeat a.m. labs. Labs: D-dimer 0.59, white blood count 8.0, hemoglobin 12.1, platelets are 178. sodium is 133, potassium is 3.5, BUN is 31, creatinine is 1.63, calcium is 8.4, magnesium is 1.5 Review of systems: Constitutional: No reports of fatigue, fever, or chills Cardiovascular: No reports of chest pain or palpitations Respiratory: No reports of shortness of breath or cough GI: No reports of nausea, vomiting, or diarrhea : No reports of dysuria or retention Neurovascular: No reports of weakness or numbness All medications have been reviewed Active Medications Acetaminophen (Acetaminophen Tab 325 Mg Tab) 650 mg PO Q6HR PRN PRN Reason: Fever and/ or Pain Last Admin: 12/14/20 07:29 Dose: 650 mg Documented by: Ascorbic Acid (Ascorbic Acid 500 Mg Tab) 500 mg PO DAILY [facility] Last Admin: 12/14/20 09:16 Dose: 500 mg Documented by: Atorvastatin Calcium (Atorvastatin 20 Mg Tab) 20 mg PO [facility] Last Admin: 12/13/20 21:59 Dose: 20 mg Documented by: Bumetanide (Bumetanide 1 Mg Tab) 1 mg PO DAILY [facility] Last Admin: 12/14/20 09:16 Dose: 1 mg Documented by: Calcium Carbonate (Calcium Carb-Vit D 500 Mg-5 Mcg Tab) 1 each PO DAILY [facility] Last Admin: 12/14/20 09:16 Dose: 1 each Documented by: Enoxaparin Sodium (Enoxaparin 40 Mg/0.4 Ml Syringe) 40 mg SQ DAILY [facility] Last Admin: 12/14/20 09:16 Dose: 40 mg Documented by: Insulin Aspart (Insulin Aspart (Novolog) 100 Unit/Ml Vial) 0 unit SQ [facility]; Protocol Last Admin: 10/29/21 12:06 Dose: Not Given Documented by: Metoprolol Tartrate (Metoprolol Tartrate 25 Mg Tab) 25 mg PO BID [facility] Last Admin: 12/14/20 09:32 Dose: 25 mg Documented by: Multivitamins (Multivitamins, Thera 1 Each Tab) 1 each PO DAILY [facility] Last Admin: 12/14/20 09:16 Dose: 1 each Documented by: Naloxone HCl (Naloxone 0.4 Mg/Ml 1 Ml Vial) 0.2 mg IV Q2M PRN PRN Reason: Opioid Reversal Ondansetron HCl (Ondansetron 4 Mg/2 Ml Vial) 4 mg IVP Q6HR PRN PRN Reason: Nausea And Vomiting Pantoprazole Sodium (Pantoprazole 40 Mg Tablet) 40 mg PO BID [facility] Prednisone (Prednisone 5 Mg Tab) 5 mg PO Q48H [facility] Last Admin: 12/12/20 17:53 Dose: 5 mg Documented by: Spironolactone (Spironolactone 25 Mg Tab) 25 mg PO DAILY [facility] Last Admin: 12/14/20 09:16 Dose: 25 mg Documented by: Sulfasalazine (Sulfasalazine 500 Mg Tab) 500 mg PO BID [facility] Stop: 03/21/21 21:01 Last Admin: 12/14/20 09:16 Dose: 500 mg Documented by: Tamsulosin HCl (Tamsulosin 0.4 Mg Cap.Er.24h) 0.4 mg PO DAILY [facility] Last Admin: 12/14/20 09:16 Dose: 0.4 mg Documented by: Zinc Sulfate (Zinc Sulfate 220 Mg Cap) 220 mg PO DAILY [facility] Last Admin: 12/14/20 09:16 Dose: 220 mg Documented by: Physical exam: Patient is sitting up in the chair comfortably, no acute distress, awake alert and oriented.. HEENT: Normocephalic. Neck is supple. Pupils reactive. Nostrils clear. Oral cavity is moist. Neck reveals no JVD, carotid bruits, or thyromegaly. CHEST EXAMINATION: Trachea is central. Symmetrical expansion. Bilateral coarse breath sounds. No wheezing or rhonchi. Nonlabored.. CARDIAC: Normal S1, S2 with no gallops. + systolic murmur ABDOMEN: Soft. Bowel sounds normal. No organomegaly. No abdominal bruits. Extremities: reveal no edema. No clubbing or cyanosis Neurologically awake, alert, oriented x2 with well-coordinated movements. No focal deficits noted Skin: No rash or skin lesions. Psychiatric: Cooperative. Musculoskeletal: No joint swelling or deformity. Assessment: Acute COVID-19 pneumonia. Patient has been having symptoms for the past 1 week with cough and congestion. Acute presyncopal episode Mild acute CHF. with diastolic dysfunction with an EF of 50-55% Acute kidney injury likely prerenal Hypomagnesemia 1.5 being replaced. 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 BPH Osteoarthritis GERD History of right ear basal cell carcinoma removal Previous history of smoking DVT prophylaxis. lovenox sq Full code Plan: Patient will be continued Continued on telemetry monitoring. Cardiology following and recommending continuing with current medication management and will follow on an as-needed basis. Pulmonary also consulted for COVID-19 inpatient will continue on his prednisone along with vitamin and zinc supplements and Lovenox injections. Patient denies any worsening shortness of breath and per nursing staff had an episode of low oxygen saturation reading and was placed on 2 L. Oxygen saturations was 90% on 2 L this morning. Discussed with nursing staff about weaning FiO2 as tolerated. Repeat labs in the morning and replace magnesium as it was 1.5. Further recommendations to follow pending the clinical course of the patient. Prognosis is guarded. patient is requesting to go home. Will discuss with pulmonary and appreciate their input with possible discharge in 24 hours. Objective - Vital Signs Vital signs: Vital Signs Temp 101.4 F H 12/14/20 05:58 Pulse 83 12/14/20 05:58 Resp 18 12/13/20 18:00 BP 106/62 12/14/20 05:58 Pulse Ox 89 L 12/14/20 05:58 Intake & Output 12/13/20 12/14/20 12/14/20 18:59 06:59 18:59 Output Total 100 Balance -100 Output: Urine 100 Other: Voiding Method Urinal # Voids 6 1 # Bowel Movements 0 - Labs CBC & Chem 7: 12/14/20 06:20 12/14/20 06:20 Labs: Abnormal Lab Results - Last 24 Hours (Table) 12/13/20 12/13/20 12/13/20 Range/Units 05:59 05:59 21:31 RBC 3.61 L (4.40-5.60) X 10*6/uL Hgb 11.4 L (13.0-17.0) g/dL Hct 35.7 L (39.6-50.0) % MCV 98.9 H (80.0-97.0) fL MCHC 31.9 L (32.0-37.0) g/dL Immature Gran # 0.09 H (0.00-0.04) X 10*3/uL Carbon Dioxide 17.7 L (21.6-31.8) mmol/L Anion Gap 22.80 H (4.00-12.00) mmol/L Est GFR (CKD-EPI)AfAm 47.9 L (60.0-200.0) Est GFR (CKD-EPI)NonAf 41.4 L (60.0-200.0) Glucose 115 H (70-110) mg/dL POC Glucose (mg/dL) 158 H (75-99) mg/dL Calcium 8.4 L (8.7-10.3) mg/dL Lactate Dehydrogenase 323 H (120-246) U/L C-Reactive Protein 1.20 H (0.00-0.80) mg/dL Total Protein 5.8 L (6.2-8.2) g/dL Albumin 3.7 L (3.8-4.9) g/dL 12/14/20 Range/Units 06:50 RBC (4.40-5.60) X 10*6/uL Hgb (13.0-17.0) g/dL Hct (39.6-50.0) % MCV (80.0-97.0) fL MCHC (32.0-37.0) g/dL Immature Gran # (0.00-0.04) X 10*3/uL Carbon Dioxide (21.6-31.8) mmol/L Anion Gap (4.00-12.00) mmol/L Est GFR (CKD-EPI)AfAm (60.0-200.0) Est GFR (CKD-EPI)NonAf (60.0-200.0) Glucose (70-110) mg/dL POC Glucose (mg/dL) 112 H (75-99) mg/dL Calcium (8.7-10.3) mg/dL Lactate Dehydrogenase (120-246) U/L C-Reactive Protein (0.00-0.80) mg/dL Total Protein (6.2-8.2) g/dL Albumin (3.8-4.9) g/dL
[2020-12-14 16:49] LABS: Glucose,Whole Blood 138 mg/dL (75-99)
[2020-12-14] MEDS: predniSONE 5 MG TAB PO SCH (17:02)
[2020-12-14 20:44] LABS: Glucose,Whole Blood 117 mg/dL (75-99)
[2020-12-14] MEDS: ATORVASTATIN 20 MG TAB PO SCH (21:12)
[2020-12-14] MEDS: PANTOPRAZOLE 40 MG TABLET PO SCH (21:13)
[2020-12-15 07:05] LABS: Glucose,Whole Blood 167 mg/dL (75-99)
[2020-12-15] MEDS: INSULIN ASPART (NovoLOG) 100 UNIT/ML VIAL SQ SCH ×4 (08:58→21:14)
[2020-12-15] MEDS: ENOXAPARIN 40 MG/0.4 ML SYRINGE SQ SCH (08:58)
[2020-12-15] MEDS: ASCORBIC ACID 500 MG TAB PO SCH (08:59)
[2020-12-15] MEDS: BUMETANIDE 1 MG TAB PO SCH (08:59)
[2020-12-15] MEDS: PANTOPRAZOLE 40 MG TABLET PO SCH ×2 (08:59→21:02)
[2020-12-15] MEDS: CALCIUM CARB-VIT D 500 MG-5 MCG TAB PO SCH (08:59)
[2020-12-15] MEDS: ZINC SULFATE 220 MG CAP PO SCH (08:59)
[2020-12-15] MEDS: TAMSULOSIN 0.4 MG CAP.ER.24H PO SCH (08:59)
[2020-12-15] MEDS: sulfaSALAzine 500 MG TAB PO SCH ×2 (08:59→21:02)
[2020-12-15] MEDS: MULTIVITAMINS, THERA 1 EACH TAB PO SCH (08:59)
[2020-12-15] MEDS: METOPROLOL TARTRATE 25 MG TAB PO SCH ×2 (08:59→21:02)
[2020-12-15] MEDS: SPIRONOLACTONE 25 MG TAB PO SCH (09:00)
[2020-12-15 11:13] LABS: Glucose,Whole Blood 96 mg/dL (75-99)
--- NOTE | 2020-12-15 15:03 | P.PN ---
Subjective Progress Note Date: 12/15/20 Principal diagnosis: COVID-19 infection, near syncope This is a 89-year-old male patient with past medical history of diabetes mellitus type 2, nonspecific interstitial pneumonitis/pulmonary fibrosis secondary to rheumatoid arthritis, hypertension, hyperlipidemia, peripheral va scular disease, previous history of pericarditis status post pericardial window 2. Patient was brought into the hospital after experiencing an episode of dizziness after she took a shower at home. He did not lose consciousness. No complaints of shortness of breath, no chest pain or pressure, he reported feeling nauseous following the event, his chest x-ray showed diffuse increased lung markings, EKG showed sinus mechanism with PVCs and PACs. Patient was tested for COVID-19 in the ER and was found to be positive. His urinalysis was negative for any definite sign of infection. His white blood cell count was 7.5, hemoglobin was 11.9, d-dimer was 0.85, electrolytes were within normal limi ts, B1 is 31 creatinine was 1.67, troponins were negative at 0.032, and 0.026, proBNP was 1950. LFTs were within normal limits. Patient is currently on 2 L of oxygen and pulse ox of 96%, his had some low grade fevers while in the hospital with a temp of 99.8F. His third of her troponins remained negative at 0.026 and 0.025. Today's d-dimer is within normal limits at 0.54. Patient is breathing comfortably, denies any significant pulmonary complaints. He did complete his COVID-19 vaccination. Is on maintenance dose prednisone 5 mg every other day for his history of interstitial lung disease related to rheumatoid arthritis. 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 Pulmonary perspective he is asymptomatic, he is resting comfortably in bed, cardiology is being consulted for patient's episode of presyncope and dizziness at home. Please refer to the consultation note. The patient is seen today 12/14/2020 in follow-up on the regular medical floor. Discussed the resting comfortably in bed. Awake and alert in no acute distress. No Benavides syncope. No worsening shortness of breath, cough or congestion. He is maintaining O2 saturations at 90% on 2 L/m per nasal cannula. He did have a temp early this morning of 101.4. Currently afebrile. White count 8.0. Hemoglobin 12.1. Lymphocytes 2.5. D-dimer 0.59. Sodium 133. Potassium 3.5. Creatinine 1.6. Glucose 111. He is continued on Lovenox, prednisone vitamin supplements. The patient is seen today 12/15/2020 in follow-up on the regular medical floor. Awake and alert in no acute distress. Sitting up in bed. Maintaining O2 saturations in the low 90s on 2 L/m per nasal cannula. He's afebrile. Blood glucose 167. He remains on prednisone, Lovenox, vitamin supplements. Objective - Vital Signs Vital signs: Vital Signs Temp 98.2 F 12/15/20 10:00 Pulse 57 L 12/15/20 10:00 Resp 20 12/15/20 10:00 BP 105/56 12/15/20 10:00 Pulse Ox 91 L 12/15/20 10:00 Intake & Output 12/14/20 12/15/20 12/15/20 18:59 06:59 18:59 Intake Total 200 Balance 200 Intake: Intake, IV Titration 200 Amount Magnesium Sulfate-D5w Pmx 200 1 gm In Dextrose/Water 1 100ml.bag @ 100 mls/hr IVPB Q1H ON [facility] Rx#: [id number] Other: Voiding Method Urinal # Voids 1 1 - Exam GENERAL EXAM: Alert, very pleasant, 81 -year-old male patient, on 2 L nasal cannula, comfortable in no apparent distress. HEAD: Normocephalic/atraumatic. EYES: Normal reaction of pupils, equal size. Conjunctiva pink, sclera white. NOSE: Clear with pink turbinates. THROAT: No erythema or exudates. NECK: No masses, no JVD, no thyroid enlargement, no adenopathy. CHEST: No chest wall deformity. Symmetrical expansion. LUNGS: Equal air entry with faint crackles in bilateral bases. CVS: Regular rate and rhythm, normal S1 and S2, no gallops, no murmurs, no rubs ABDOMEN: Soft, nontender. No hepatosplenomegaly, normal bowel sounds, no guarding or rigidity. EXTREMITIES: No clubbing, no edema, no cyanosis, 2+ pulses and upper and lower extremities. MUSCULOSKELETAL: Muscle strength and tone normal. SPINE: No scoliosis or deformity SKIN: No rashes CENTRAL NERVOUS SYSTEM: No focal deficits, tone is normal in all 4 extremities. PSYCHIATRIC: Alert and oriented -3. Appropriate affect. Intact judgment and insight. - Labs CBC & Chem 7: 12/14/20 06:20 12/14/20 06:20 Labs: Abnormal Lab Results - Last 24 Hours (Table) 12/14/20 12/14/20 12/15/20 Range/Units 16:47 20:43 07:02 POC Glucose (mg/dL) 138 H 117 H 167 H (75-99) mg/dL Assessment and Plan Assessment: 1 Acute COVID-19 infection, without pulmonary symptoms. He is vaccinated. Not a candidate for Remdesivir, or Decadron. Tested positive for COVID-19 in the emergency department on 12/12/2020, chest x-ray shows possibility of atypical pneumonia or early interstitial edema, patient does have underlying chronic changes related to his underlying history of interstitial lung disease secondary to rheumatoid arthritis 2 Presyncopal episode at home, without loss of consciousness 3 Diabetes mellitus type 2 4 Hypertension 5 Hyperlipidemia 6 GERD/reflux 7 Arthritis 8 Rheumatoid arthritis 9 History of pericarditis status post pericardial window 2 10 History of non-specific interstitial pneumonitis/pulmonary fibrosis secondary to rheumatoid arthritis, patient is on maintenance dose prednisone 5 mg daily 11 Possible chronic hypoxic respiratory failure related to the above, not oxygen dependent up until recently 12 History of liver cirrhosis 13 Peripheral vascular disease Plan: The patient was seen and evaluated by Dr. Vaz Cleared for discharge from the pulmonary standpoint We will see as needed I, the cosigning physician, performed a history & physical examination of the patient. Lungs sounds with crackles in the bilateral bases. Maintaining good O2 saturations in the 90s on 2 L/m per nasal cannula. I discussed the assessment and plan of care with my nurse practitioner, Tea Goddard. I attest to the above note as dictated by her.
[2020-12-15 16:56] LABS: Glucose,Whole Blood 166 mg/dL (75-99)
[2020-12-15] MEDS: guaiFENesin SYRUP 100MG/5ML 200 MG/10 ML CUP PO PRN ×2 (16:59→21:02)
[2020-12-15 20:35] LABS: Glucose,Whole Blood 114 mg/dL (75-99)
[2020-12-15] MEDS: ATORVASTATIN 20 MG TAB PO SCH (21:02)
[2020-12-16] MEDS: ACETAMINOPHEN TAB 325 MG TAB PO PRN (06:15)
[2020-12-16 06:53] LABS: Glucose,Whole Blood 138 mg/dL (75-99)
[2020-12-16] MEDS: SPIRONOLACTONE 25 MG TAB PO SCH (07:44)
[2020-12-16] MEDS: CALCIUM CARB-VIT D 500 MG-5 MCG TAB PO SCH (07:44)
[2020-12-16] MEDS: METOPROLOL TARTRATE 25 MG TAB PO SCH ×2 (07:44→21:28)
[2020-12-16] MEDS: ASCORBIC ACID 500 MG TAB PO SCH (07:44)
[2020-12-16] MEDS: MULTIVITAMINS, THERA 1 EACH TAB PO SCH (07:44)
[2020-12-16] MEDS: ENOXAPARIN 40 MG/0.4 ML SYRINGE SQ SCH (07:44)
[2020-12-16] MEDS: BUMETANIDE 1 MG TAB PO SCH (07:44)
[2020-12-16] MEDS: TAMSULOSIN 0.4 MG CAP.ER.24H PO SCH (07:44)
[2020-12-16] MEDS: ZINC SULFATE 220 MG CAP PO SCH (07:44)
[2020-12-16] MEDS: sulfaSALAzine 500 MG TAB PO SCH ×2 (07:45→21:28)
[2020-12-16] MEDS: guaiFENesin SYRUP 100MG/5ML 200 MG/10 ML CUP PO PRN ×2 (07:45→21:28)
[2020-12-16] MEDS: PANTOPRAZOLE 40 MG TABLET PO SCH ×2 (07:45→21:28)
[2020-12-16] MEDS: INSULIN ASPART (NovoLOG) 100 UNIT/ML VIAL SQ SCH ×4 (07:46→21:29)
[2020-12-16] MEDS ORDERED: predniSONE 5 MG TAB PO SCH (09:00)
[2020-12-16 10:34] LABS: Basophils % (A) 1 %; Eosinophils # (A) 0.1 k/uL (0-0.7); Eosinophils % (A) 1 %; HCT 34.9 % (39.0-53.0); HGB 11.6 gm/dL (13.0-17.5); Lymphocytes # (A) 1.5 k/uL (1.0-4.8); Lymphocytes % (A) 17 %; MCH 33.2 pg (25.0-35.0); MCHC 33.1 g/dL (31.0-37.0); MCV 100.2 fL (80.0-100.0); Macrocytosis Slight; Mean Platelet Volume 9.2; Monocytes # (A) 0.5 k/uL (0-1.0); Monocytes % (A) 6 %; Neutrophils # (A) 6.5 k/uL (1.3-7.7); Neutrophils % (A) 73 %; Platelet Count 210 k/uL (150-450); RBC 3.49 m/uL (4.30-5.90); RDW 14.2 % (11.5-15.5); WBC 8.8 k/uL (3.8-10.6)
[2020-12-16 10:47] LABS: ALT 16 U/L (4-49); AST 40 U/L (17-59); African American GFR (CKD) 47 (>60 ml/min/1.73 sqM); Albumin 3.2 g/dL (3.5-5.0); Albumin/Globulin Ratio 1.2; Alkaline Phosphatase 45 U/L (38-126); Anion Gap 10 mmol/L; Blood Urea Nitrogen 33 mg/dL (9-20); Calcium 8.6 mg/dL (8.4-10.2); Carbon Dioxide 28 mmol/L (22-30); Chloride 94 mmol/L (98-107); Globulin 2.6 g/dL; Glucose 164 mg/dL (74-99); Magnesium 1.7 mg/dL (1.6-2.3); Non-African American GFR(CKD) 40 (>60 ml/min/1.73 sqM); Potassium 3.1 mmol/L (3.5-5.1); Sodium 132 mmol/L (137-145); Total Bilirubin 0.7 mg/dL (0.2-1.3); Total Protein 5.8 g/dL (6.3-8.2)
[2020-12-16] MEDS: MAGNESIUM SULFATE-D5W PMX 1 GM in DEXTROSE/WATER 1 100ML.BAG IVPB SCH ×2 (11:44→13:50)
[2020-12-16] MEDS: POTASSIUM CHLORIDE ER 20 MEQ TAB.ER PO SCH ×2 (11:45→13:46)
[2020-12-16 11:47] LABS: Glucose,Whole Blood 153 mg/dL (75-99)
[2020-12-16 16:58] LABS: Glucose,Whole Blood 204 mg/dL (75-99)
[2020-12-16 20:50] LABS: Glucose,Whole Blood 126 mg/dL (75-99)
[2020-12-16] MEDS: ATORVASTATIN 20 MG TAB PO SCH (21:28)
--- NOTE | 2020-12-17 00:46 | P.PN ---
Subjective Progress Note Date: 12/15/20 12/15/20 Patient is seen and evaluated at bedside. Patient is discussed with nursing staff. Patient is alert, awake, orientated. Patient does not appear to be in any acute distress, patient is sitting up in the bed. There seems to be no major changes or concerns from yesterday. Patient's 02 saturations are being maintained in the low 90s while patient remains on 2 L/m per nasal cannula. Patient is afebrile. Patient is on the current medical regimen: prednisone, Lovenox, and vitamin supplements. Vitals signs and labs have bee reviewed. Continue supportive care. Objective - Vital Signs Vital signs: Vital Signs Temp 98.2 F 12/15/20 10:00 Pulse 57 L 12/15/20 10:00 Resp 20 12/15/20 10:00 BP 105/56 12/15/20 10:00 Pulse Ox 91 L 12/15/20 10:00 Intake & Output 12/14/20 12/15/20 12/15/20 18:59 06:59 18:59 Intake Total 200 Balance 200 Intake: Intake, IV Titration 200 Amount Magnesium Sulfate-D5w Pmx 200 1 gm In Dextrose/Water 1 100ml.bag @ 100 mls/hr IVPB Q1H [facility] Rx#: [id number] Other: Voiding Method Urinal # Voids 1 1 - Labs CBC & Chem 7: 12/16/20 09:52 12/16/20 09:52 Labs: Abnormal Lab Results - Last 24 Hours (Table) 12/14/20 12/14/20 12/15/20 Range/Units 16:47 20:43 07:02 POC Glucose (mg/dL) 138 H 117 H 167 H (75-99) mg/dL
--- NOTE | 2020-12-17 00:51 | P.PN ---
Subjective Progress Note Date: 12/16/20 12/15/20 Patient is seen and evaluated at bedside. Patient is discussed with nursing staff. Patient is alert, awake, orientated. Patient does not appear to be in any acute distress, patient is sitting up in the bed. There seems to be no major changes or concerns from yesterday. Patient's 02 saturations are being maintained in the low 90s while patient remains on 2 L/m per nasal cannula. Patient is afebrile. Patient is on the current medical regimen: prednisone, Lovenox, and vitamin supplements. Vitals signs and labs have been reviewed. Continue supportive care. 12/16/20 Patient is seen and evaluated at bedside. Patient is discussed with nursing staff. Patient is alert, awake, and oriented. Patient is not in any type of acute distress nor do they have any complaints. Patient is overall showing slow improvement. Renal function is improved. Patient is breathing easier with O2 saturations around 93%. Vital signs have been reviewed labs have been reviewed Continue supportive care. Objective - Vital Signs Vital signs: Vital Signs Temp 98.1 F 12/16/20 14:00 Pulse 55 L 12/16/20 14:00 Resp 18 12/16/20 14:00 BP 103/56 12/16/20 14:00 Pulse Ox 93 L 12/16/20 14:00 Intake & Output 12/15/20 12/16/20 12/16/20 18:59 06:59 18:59 Other: Voiding Method Urinal # Voids 3 2 2 - Labs CBC & Chem 7: 12/16/20 09:52 12/16/20 09:52 Labs: Abnormal Lab Results - Last 24 Hours (Table) 12/15/20 12/15/20 12/16/20 Range/Units 16:54 20:34 06:51 RBC (4.30-5.90) m/uL Hgb (13.0-17.5) gm/dL Hct (39.0-53.0) % MCV (80.0-100.0) fL Sodium (137-145) mmol/L Potassium (3.5-5.1) mmol/L Chloride (98-107) mmol/L BUN (9-20) mg/dL Creatinine (0.66-1.25) mg/dL Glucose (74-99) mg/dL POC Glucose (mg/dL) 166 H 114 H 138 H (75-99) mg/dL Total Protein (6.3-8.2) g/dL Albumin (3.5-5.0) g/dL 12/16/20 12/16/20 12/16/20 Range/Units 09:52 09:52 11:45 RBC 3.49 L (4.30-5.90) m/uL Hgb 11.6 L (13.0-17.5) gm/dL Hct 34.9 L (39.0-53.0) % MCV 100.2 H (80.0-100.0) fL Sodium 132 L (137-145) mmol/L Potassium 3.1 L (3.5-5.1) mmol/L Chloride 94 L (98-107) mmol/L BUN 33 H (9-20) mg/dL Creatinine 1.52 H (0.66-1.25) mg/dL Glucose 164 H (74-99) mg/dL POC Glucose (mg/dL) 153 H (75-99) mg/dL Total Protein 5.8 L (6.3-8.2) g/dL Albumin 3.2 L (3.5-5.0) g/dL
[2020-12-17 06:45] LABS: Glucose,Whole Blood 123 mg/dL (75-99)
[2020-12-17] MEDS: INSULIN ASPART (NovoLOG) 100 UNIT/ML VIAL SQ SCH ×2 (06:58→11:54)
[2020-12-17] MEDS: ZINC SULFATE 220 MG CAP PO SCH (06:59)
[2020-12-17] MEDS: SPIRONOLACTONE 25 MG TAB PO SCH (06:59)
[2020-12-17] MEDS: ASCORBIC ACID 500 MG TAB PO SCH (06:59)
[2020-12-17] MEDS: CALCIUM CARB-VIT D 500 MG-5 MCG TAB PO SCH (06:59)
[2020-12-17] MEDS: MULTIVITAMINS, THERA 1 EACH TAB PO SCH (06:59)
[2020-12-17] MEDS: PANTOPRAZOLE 40 MG TABLET PO SCH (07:00)
[2020-12-17] MEDS: TAMSULOSIN 0.4 MG CAP.ER.24H PO SCH (07:00)
[2020-12-17] MEDS: METOPROLOL TARTRATE 25 MG TAB PO SCH (07:00)
[2020-12-17] MEDS: sulfaSALAzine 500 MG TAB PO SCH (07:00)
[2020-12-17] MEDS: BUMETANIDE 1 MG TAB PO SCH (07:01)
[2020-12-17] MEDS: ENOXAPARIN 40 MG/0.4 ML SYRINGE SQ SCH (07:01)
[2020-12-17 11:22] LABS: Magnesium 2.1 mg/dL (1.5-2.4)
[2020-12-17 11:39] LABS: Glucose,Whole Blood 141 mg/dL (75-99)
[2020-12-17] MEDS: guaiFENesin SYRUP 100MG/5ML 200 MG/10 ML CUP PO PRN (12:09)
[2020-12-17 15:26] VITALS: BP 118/64; PULSE 87; RESP 18; TEMP 98.5
[2020-12-17 15:27] LABS: African American GFR (CKD) 51.3 (60.0-200.0); Albumin 3.4 g/dL (3.8-4.9); Albumin/Globulin Ratio 1.62 (1.60-3.17); Anion Gap 12.3 mmol/L (4.00-12.00); BUN/Creat Ratio 19.93 Ratio (12.00-20.00); Blood Urea Nitrogen 27.9 mg/dL (9.0-27.0); Calcium 8.4 mg/dL (8.7-10.3); Carbon Dioxide 26.7 mmol/L (21.6-31.8); Globulin 2.1 g/dL (1.6-3.3); Non-African American GFR(CKD) 44.2 (60.0-200.0); Potassium 3.7 mmol/L (3.5-5.5); Total Bilirubin 0.5 mg/dL (0.30-1.20); Total Protein 5.5 g/dL (6.2-8.2)
== END 2020-12-17 17:40 | disposition home health service (06) | DRG 177 ==
LOC: EC 10:08 → 4SSUR 13:28 → 2SICU 14:49 → 4SSUR 14:59
PROVIDERS: ADMIT Internal Medicine; ATTEND Internal Medicine
PROC: B24BZZZ Ultrasonography of Heart with Aorta (ICD-10-PCS; principal; 2020-12-13)
DX: U07.1 COVID-19 (principal); I50.31 Acute diastolic (congestive) heart failure; J18.9 Pneumonia, unspecified organism; N17.9 Acute kidney failure, unspecified; I31.9 Disease of pericardium, unspecified; J96.11 Chronic respiratory failure with hypoxia; R55 Syncope and collapse; Z68.26 Body mass index [BMI] 26.0-26.9, adult; Z79.899 Other long term (current) drug therapy; Z79.84 Long term (current) use of oral hypoglycemic drugs; E11.9 Type 2 diabetes mellitus without complications; I11.0 Hypertensive heart disease with heart failure; E78.5 Hyperlipidemia, unspecified; M06.9 Rheumatoid arthritis, unspecified; K21.9 Gastro-esophageal reflux disease without esophagitis; K76.9 Liver disease, unspecified; M19.90 Unspecified osteoarthritis, unspecified site; E83.42 Hypomagnesemia; R61 Generalized hyperhidrosis; I49.3 Ventricular premature depolarization; J84.89 Other specified interstitial pulmonary diseases; M05.10 Rheumatoid lung disease with rheumatoid arthritis of unspecified site; I27.20 Pulmonary hypertension, unspecified; I08.1 Rheumatic disorders of both mitral and tricuspid valves; K74.60 Unspecified cirrhosis of liver; N40.0 Benign prostatic hyperplasia without lower urinary tract symptoms; E11.51 Type 2 diabetes mellitus with diabetic peripheral angiopathy without gangrene; J84.10 Pulmonary fibrosis, unspecified; R42 Dizziness and giddiness; M54.9 Dorsalgia, unspecified; Z85.828 Personal history of other malignant neoplasm of skin; Z87.891 Personal history of nicotine dependence; Z99.81 Dependence on supplemental oxygen
CPT/HCPCS: 36415; 71046; 80048; 80053; 81001; 82728; 83615; 83735; 83880; 84443; 84484; 85025; 85379; 85610; 85730; 86140; 87635; 93005; 93306; 94760; 99285

== ENCOUNTER → 2021-02-20 | Outpatient (CLI) | payer MEDICARE, OTHER ==
[2021-02-20 14:48] LABS: HCT 34.8 % (39.6-50.0); HGB 10.8 g/dL (13.0-17.0); Mean Platelet Volume 10.4 fL (9.5-12.2); Platelet Count 259 X 10*3/uL (140-440); RBC 3.38 X 10*6/uL (4.40-5.60); RDW 15.4 % (11.5-14.5); WBC 13.44 X 10*3/uL (4.50-10.00)
[2021-02-20 15:43] LABS: INR 1.05 (0.90-1.11); Prothrombin Time 11.5 sec (9.9-11.9)
[2021-02-20 16:48] LABS: ALT 10 U/L (10-49); AST 20 U/L (14-35); African American GFR (CKD) 57.7 (60.0-200.0); Albumin 3.9 g/dL (3.8-4.9); Albumin/Globulin Ratio 1.53 (1.60-3.17); Alkaline Phosphatase 67 U/L (41-126); BUN/Creat Ratio 19.13 Ratio (12.00-20.00); Blood Urea Nitrogen 24.3 mg/dL (9.0-27.0); Calcium 9.2 mg/dL (8.7-10.3); Carbon Dioxide 23.4 mmol/L (20.0-27.5); Chloride 105 mmol/L (96-109); Chol/HDL Ratio 3.16 Ratio; Globulin 2.6 g/dL (1.6-3.3); Glucose 115 mg/dL (70-110); LDL Cholesterol,Calculated 70.9 mg/dL (0.0-131.0); Non-African American GFR(CKD) 49.8 (60.0-200.0); Potassium 4.1 mmol/L (3.5-5.5); Sodium 142 mmol/L (135-145); Total Protein 6.5 g/dL (6.2-8.2)
== END | disposition home or self-care (01) ==
LOC: LABWHC1 09:52
PROVIDERS: ATTEND Internal Medicine Interventional Cardiology
DX: E78.2 Mixed hyperlipidemia (principal); K74.60 Unspecified cirrhosis of liver
CPT/HCPCS: 36415; 80053; 80061; 82105; 85027; 85610

== ENCOUNTER → 2021-04-10 | Outpatient (CLI) | payer MEDICARE, OTHER ==
[2021-04-10 22:55] LABS: BUN/Creat Ratio 19.81 Ratio (12.00-20.00); Blood Urea Nitrogen 31.5 mg/dL (9.0-27.0); Calcium 9.4 mg/dL (8.7-10.3); Carbon Dioxide 23.4 mmol/L (20.0-27.5); Non-African American GFR(CKD) 37.9 (60.0-200.0); Potassium 4.3 mmol/L (3.5-5.5)
== END | disposition home or self-care (01) ==
LOC: LABWHC1 15:50
PROVIDERS: ATTEND Family Medicine
DX: E83.42 Hypomagnesemia (principal)
CPT/HCPCS: 36415; 80048; 83735

== ENCOUNTER → 2021-09-03 | Outpatient (CLI) | payer MEDICARE, OTHER ==
[2021-09-03 14:33] LABS: ALT 13 U/L (10-49); AST 22 U/L (14-35); Albumin 4.2 g/dL (3.8-4.9); Albumin/Globulin Ratio 1.82 (1.60-3.17); Alkaline Phosphatase 68 U/L (41-126); BUN/Creat Ratio 22.45 Ratio (12.00-20.00); Blood Urea Nitrogen 32.1 mg/dL (9.0-27.0); Calcium 9.7 mg/dL (8.7-10.3); Carbon Dioxide 25.9 mmol/L (20.0-27.5); Chloride 103 mmol/L (96-109); Chol/HDL Ratio 2.82 Ratio; Globulin 2.3 g/dL (1.6-3.3); Glucose 112 mg/dL (70-110); Non-African American GFR(CKD) 43.1 (60.0-200.0); Potassium 4.5 mmol/L (3.5-5.5); Sodium 141 mmol/L (135-145); Total Protein 6.5 g/dL (6.2-8.2)
== END | disposition home or self-care (01) ==
LOC: LABWHC1 07:53
PROVIDERS: ATTEND Internal Medicine Interventional Cardiology
DX: E78.2 Mixed hyperlipidemia (principal)
CPT/HCPCS: 36415; 80053; 80061